=== PATIENT | female | born 1940 | race Caucasian/White ===

== ENCOUNTER → 2019-05-26 | Outpatient (CLI) | payer MEDICARE, OTHER ==
[~2019-05-26] MED LIST: ASPIR 8181 MG PO; AUGMENTIN 875-1 EACH PO; BAYER ADVANCED500 MG PO; FENOFIBRATE145 MG PO; ISORDIL TITRADOS5 MG PO; ISOSORBIDE MONO30 MG PO; LOSARTAN POTASS25 MG PO; ONDANSETRON HCL INJ 2MG/ML 2ML 2 MG/ML VIAL ONE; PLAVIX75 MG PO; RANEXA500 MG PO; REGADENOSON 0.4 MG/5 ML SYR IV ONE; SIMVASTATIN20 MG PO; VERAPAMIL ER120 MG PO
== END ==
LOC: NM 07:30
PROVIDERS: ATTEND Internal Medicine Cardiovascular Disease
DX: R07.9 Chest pain, unspecified (principal); I25.10 Atherosclerotic heart disease of native coronary artery without angina pectoris; Z98.61 Coronary angioplasty status
CPT/HCPCS: 78452; 93017; A9502; J2405; J2785

== ENCOUNTER 2019-12-16 10:16 | Inpatient (IN) | payer MEDICARE, OTHER ==
[~2019-12-16] VITALS: Ht 157.5 cm; Wt 58.1 kg
[~2019-12-16 10:16] MED LIST changes: -ONDANSETRON HCL INJ 2MG/ML 2ML 2 MG/ML VIAL ONE; -REGADENOSON 0.4 MG/5 ML SYR IV ONE
[2019-12-16] MEDS ORDERED: SODIUM CHLORIDE 0.9% 1000ML 1,000 ML IV STA (10:50)
[2019-12-16] MEDS ORDERED: ONDANSETRON HCL INJ 2MG/ML 2ML 2 MG/ML VIAL IV STA (10:50)
[2019-12-16] MEDS ORDERED: PANTOPRAZOLE 40 MG 10ML VIAL IV STA (10:50)
[2019-12-16] MEDS ORDERED: MORPHINE SULFATE 2 MG/ML SYR 1ML IV STA (10:50)
--- NOTE | 2019-12-16 10:53 | NUR ---
PATIENT FEBRILE 100.4 IN TRIAGE, PATIENT BUNDLED IN LARGE PURPLE COAT. PATIENT ADVISED TO REMOVE COAT SO THAT WE DO NOT INCREASE HER TEMPERATURE. PATIENT STATES "I'M COLD, I DON'T CARE IF IT MAKES MY TEMP GO HIGHER"
[2019-12-16] MEDS ORDERED: DIATRIZOATE MEGL/DIATRIZOA SOD 30 ML BTL PO ONE (11:09)
[2019-12-16 11:44] LABS: BASOPHILS # (AUTO) 0.1 (0.0-0.1); BASOPHILS % 0.3 % (0.0-1.0); HEMOGLOBIN 10.9 g/dL (12.0-16.0); LYMPHOCYTES # (AUTO) 0.9 (1.0-3.2); LYMPHOCYTES % 3.3 % (18.0-39.1); MEAN CORPUSCULAR HEMOGLOBIN 25.8 pg (28-32); MEAN CORPUSCULAR HGB CONC 31.1 g/dL (31-35); MEAN CORPUSCULAR VOLUME 82.9 fL (81-99); MONOCYTES # (AUTO) 1.1 (0.2-0.8); MONOCYTES % 4.1 % (4.4-11.3); NEUTROPHILS # (AUTO) 23.9 (2.1-6.9); NEUTROPHILS % 90.9 % (38.7-80.0); PLATELET COUNT 415 x10e3/uL (140-360); RED BLOOD COUNT 4.22 x10e6/uL (3.6-5.1)
[2019-12-16 11:56] LABS: INR 1.22; PROTHROMBIN TIME 16.2 seconds (11.9-14.5)
[2019-12-16 11:57] LABS: PARTIAL THROMBOPLASTIN TIME 39.8 seconds (23.8-35.5)
--- NOTE | 2019-12-16 12:02 | Diagnostic Imaging Report ---
EXAM: CHEST SINGLE (PORTABLE) DATE: 12/16/2019 11:30 AM INDICATION: Fever, abdominal pain COMPARISON: None FINDINGS: There are posterior changes from prior median sternotomy and suspected CABG. The trachea is midline. The lungs are symmetrically expanded without evidence for large focal consolidation, pneumothorax, or significant pleural effusion. The cardiomediastinal silhouette and pulmonary vasculature are within normal limits. Atherosclerotic calcification are noted within the thoracic aorta. No acute osseous abnormality is identified. IMPRESSION: No acute cardiopulmonary process identified. Signed by: Dr. Bryon Galindo MD on 12/16/2019 11:58 AM
[2019-12-16 12:07] LABS: ALBUMIN 2.8 g/dL (3.5-5.0); ALBUMIN/GLOBULIN RATIO 0.6 (0.8-2.0); ANION GAP 16.1 mmol/L (8-16); CALCIUM 9.9 mg/dL (8.4-10.2); CREATININE, SERUM 1.01 mg/dL (0.57-1.11); MAGNESIUM 1.2 MG/DL (1.3-2.1); POTASSIUM 4.1 mmol/L (3.5-5.1)
[2019-12-16] MEDS ORDERED: HYDROMORPHONE 1MG/1ML INJ IV STA (12:11)
[2019-12-16 12:13] LABS: CREATINE KINASE MB 0.5 ng/mL (0-5.0)
[2019-12-16 12:48] LABS: LYMPHOCYTES % (MANUAL) 4 % (19-48); MONOCYTES % (MANUAL) 4 % (3.4-9.0); NEUTROPHILS % (MANUAL) 92 % (40-74)
[2019-12-16 12:49] LABS: PLATELET ESTIMATE SLIGHTLY INCREASED; PLATELET MORPHOLOGY COMMENT FEW EDTA CLUMPING; RBC MORPHOLOGY COMMENT NORMAL
[2019-12-16] MEDS ORDERED: SODIUM CHLORIDE 0.9% 50ML 50 ML ONE (13:08)
[2019-12-16] MEDS ORDERED: IOPAMIDOL 370 MG/ML 200 ML INFUS..BTL INJ ONE (13:08)
[2019-12-16 14:07] LABS: BILIRUBIN,URINE NEGATIVE (NEGATIVE); CLARITY,URINE CLEAR (CLEAR); COLOR,URINE YELLOW (YELLOW); KETONES,URINE NEGATIVE (NEGATIVE); LEUKOCYTE ESTERASE ,URINE TRACE (NEGATIVE); NITRITE,URINE NEGATIVE (NEGATIVE); PROTEIN,URINE DIPSTICK NEGATIVE (NEGATIVE); URINE UROBILINOGEN 0.2 mg/dL (0.2 - 1)
[2019-12-16 14:17] LABS: BACTERIA,URINE MODERATE /HPF; EPITHELIAL CELLS,URINE RARE /LPF; RBC,URINE 0-5 /HPF (0-5); WBC,URINE (MAN) 0-5 /HPF (0-5)
--- NOTE | 2019-12-16 14:17 | Diagnostic Imaging Report ---
CT of the abdomen and pelvis, with contrast. History: Right lower quadrant pain, fever. History of appendectomy.. Comparison: None available. Technique: Multidetector CT scanning of the abdomen and pelvis was performed from the level of the lung bases to the inferior pubic rami after intravenous administration of contrast. Coronal and sagittal multiplanar reformations were obtained. RADIATION DOSE: Total DLP: 289.11 mGy*cm Dose modulation, iterative reconstruction, and/or weight based adjustment of the mA/kV was utilized to reduce the radiation dose to as low as reasonably achievable. FINDINGS: The lung bases are remarkable for mild bibasilar atelectasis. Partially visualized median sternotomy wires noted. The liver is normal in size and attenuation. The gallbladder is surgically absent. There is mild dilatation of the central bile ducts and dilatation of the common bile duct measuring up to 1.3 cm. No radiopaque biliary stone is identified. The spleen is mildly enlarged measuring up to 12.1 cm but otherwise unremarkable. The stomach, pancreas, and bilateral adrenal glands are unremarkable. The kidneys are normal in size and location and enhance symmetrically. There is a 4.0 x 4.6 cm simple cyst identified arising off the inferior pole the left kidney. There is no evidence for hydronephrosis. No ureteral stone or dilatation is appreciated. The urinary bladder demonstrates no significant abnormalities. The uterus is surgically absent. No abnormal adnexal masses are identified. The abdominal aorta is normal course and caliber with after scarring calcifications course and branch vessels. The IVC is unremarkable. In this patient with history of appendectomy, a 2.9 x 4.1 cm air-fluid collection is identified within the retroperitoneal right lower quadrant abutting the lateral aspect of the psoas musculature. Additional smaller foci of partially organized air and fluid noted within the right lower quadrant adjacent to the cecum which may: Need obtained with the dominant collection. There is mild wall thickening of the cecum, likely reactive. The remaining visualized loops of small and large bowel demonstrate no evidence of obstruction or inflammation, noting limited evaluation due to lack of enteric contrast material. There is no ascites or intraperitoneal free air. No abnormally enlarged lymph nodes are identified within the abdomen or pelvis. The osseous structures demonstrate degenerative changes without evidence for acute fracture or destructive process. IMPRESSION: 2.9 x 4.1 cm air-fluid collection identified within the right lower quadrant concerning for abscess. Additional smaller foci of partially organized air and fluid noted within the right lower quadrant which may communicate with the larger fluid collection. The dominant collection would be amenable for percutaneous drainage if clinically desired. Dilatation of the central intrahepatic bile ducts and common bile ducts which likely reflects reservoir phenomenon status post cholecystectomy. No radiopaque biliary stone appreciated. Signed by: Dr. Bryon Galindo MD on 12/16/2019 2:14 PM
[2019-12-16] MEDS ORDERED: MEROPENEM 1GRAM 1 GM in SODIUM CHLORIDE 0.9% 100 ML 100 ML IV SCH (14:45)
[2019-12-16] MEDS: MEROPENEM 1GM 100 ML IV SCH ×2 (14:55→23:29)
--- NOTE | 2019-12-16 15:50 | Emergency Department Note ---
History of Present Illnes History of Present Illness Chief Complaint: General Medicine Complaints History of Present Illness This is a 79 year old female PATIENT IN FROM HOME WITH COMPLAINTS OF FEVER AND RLQ ABDOMINAL PAIN X 1 WEEK; PATIENT STATES SHE HAS RLQ ABDOMINAL PAIN AND VOMITING TODAY RATES 8/10. PATIENT FEBRILE 100. IN TRIAGE, FAMILY STATES 103 AT HOME. PATIENT STATES SHE WAS SENT FROM DR ROGER OFFICE FOR DEHYDRATION. Historian: Patient, Family Member Arrival Mode: Car Toaster Operator Required: No Onset (how long ago): week(s) (1-2 WEEKS) Location: RLQ ABD Quality: PAIN Radiation: Reports non-radiation Severity: severe Onset quality: gradual Timing of current episode: constant Progression: worsening Chronicity: new Context: Denies recent illness Relieving factors: none Exacerbating factors: none Associated symptoms: Reports fever/chills, Reports nausea/vomiting Treatments prior to arrival: none Past Medical/Family History Physician Review I have reviewed the patient's past medical and family history. Any updates have been documented here. Past Medical History Recent Fever: Yes Clinical Suspicion of Infectio: Yes New/Unexplained Change in Ment: No Past Medical History: Hypertension, [place], Chronic Back Pain Other Medical History: TICK BITE CHRONIC BACK PAIN PANCREATITIS Past Surgical History: Appendectomy, Hysterectomy, CABG, Knee Replacement Other Surgery: RIGHT ARM SURGERY BILATERAL KNEE REPLACEMENT Social History Smoking Cessation: Never Smoker Counseling Performed: No Alcohol Use: None Any Illegal Drug Use: No TB Exposure/Symptoms: No Physically hurt or threatened: No Family History Family history of heart diseas: No Other Last Tetanus: UNK Any Pre-Existing Lines (PICC,: No Is patient up to date on immun: Yes Last Flu: 2019 Last Pneumovax: 2019 Review of Systems Review of Systems Constitutional: Reports as per HPI, Reports fever Gastrointestinal: Reports as per HPI, Reports abdominal pain, Reports nausea, Reports vomiting Physical Exam Related Data Allergies: Coded Allergies: codeine (Verified Allergy, Mild, "FEELS LIKE ANTS ARE CRAWLING", 03/27/17) oxycodone (Verified Allergy, Mild, "FEELS LIKE ANTS ARE CRAWLING", 03/27/17) clarithromycin (Verified Allergy, Unknown, 03/27/17) levofloxacin (Verified Allergy, Unknown, 03/27/17) meperidine (Verified Allergy, Unknown, 03/27/17) Uncoded Allergies: TAPE (Allergy, Unknown, 03/27/17) Triage Vital Signs Vital Signs Date Time Temp Pulse Resp B/P (MAP) Pulse Ox O2 Delivery O2 Flow Rate FiO2 12/16/19 10:35 100.4 96 18 126/56 99 Vital signs reviewed: Yes Physical Exam CONSTITUTIONAL Constitutional: Present well-developed, Present well-nourished HENT HENT: Present normocephalic, Present atraumatic, Present oropharynx clear/moist, Present nose normal HENT L/R: Present left ext ear normal, Present right ext ear normal EYES Eyes: Reports PERRL, Reports conjunctivae normal NECK Neck: Present ROM normal PULMONARY Pulmonary: Present effort normal, Present breath sounds normal CARDIOVASCULAR Cardiovascular: Present regular rhythm, Present heart sounds normal, Present capillary refill normal, Present normal rate GASTROINTESTINAL Abdominal: Present soft, Present tender (MOD TENDERNESS RLQ); Absent guarding, Absent rebound GENITOURINARY Genitourinary: Present exam deferred SKIN Skin: Present warm, Present dry MUSCULOSKELETAL Musculoskeletal: Present ROM normal NEUROLOGICAL Neurological: Present alert, Present oriented x 3, Present no gross motor or sensory deficits PSYCHOLOGICAL Psychological: Present mood/affect normal, Present judgement normal Results Laboratory Result Diagram: 12/16/19 1100 12/16/19 1100 Laboratory Laboratory Tests Test 12/16/19 13:45 12/16/19 11:40 12/16/19 11:00 Urine Color Yellow (YELLOW) Urine Clarity Clear (CLEAR) Urine pH 6 (5 - 7) Urine Specific [place] <=1.005 (1.010-1.025) Urine Protein Negative (NEGATIVE) Urine Glucose (UA) Negative (NEGATIVE) Urine Ketones Negative (NEGATIVE) Urine Blood Trace (NEGATIVE) Urine Nitrite Negative (NEGATIVE) Urine Bilirubin Negative (NEGATIVE) Urine Urobilinogen 0.2 mg/dL (0.2 - 1) Urine Leukocyte Esterase Trace (NEGATIVE) Urine RBC 0-5 /HPF (0-5) Urine WBC 0-5 /HPF (0-5) Urine Epithelial Cells Rare /LPF (NONE) Urine Bacteria Moderate /HPF (NONE) White Blood Count 26.34 x10e3/uL (4.8-10.8) Red Blood Count 4.22 x10e6/uL (3.6-5.1) Hemoglobin 10.9 g/dL (12.0-16.0) Hematocrit 35.0 % (34.2-44.1) Mean Corpuscular Volume 82.9 fL (81-99) Mean Corpuscular Hemoglobin 25.8 pg (28-32) Mean Corpuscular Hemoglobin Concent 31.1 g/dL (31-35) Red Cell Distribution Width 13.0 % (11.7-14.4) Platelet Count 415 x10e3/uL (140-360) Neutrophils (%) (Auto) 90.9 % (38.7-80.0) Lymphocytes (%) (Auto) 3.3 % (18.0-39.1) Monocytes (%) (Auto) 4.1 % (4.4-11.3) Eosinophils (%) (Auto) 0.0 % (0.0-6.0) Basophils (%) (Auto) 0.3 % (0.0-1.0) Neutrophils # (Auto) 23.9 (2.1-6.9) Lymphocytes # (Auto) 0.9 (1.0-3.2) Monocytes # (Auto) 1.1 (0.2-0.8) Eosinophils # (Auto) 0.0 (0.0-0.4) Basophils # (Auto) 0.1 (0.0-0.1) Absolute Immature Granulocyte (auto 0.37 x10e3/uL (0-0.1) Differential Total Cells Counted 100 Neutrophils % (Manual) 92 % (40-74) Lymphocytes % (Manual) 4 % (19-48) Monocytes % (Manual) 4 % (3.4-9.0) Platelet Estimate Slightly increased Platelet Morphology Comment Few edta clumping Red Cell Morphology Comment Normal Prothrombin Time 16.2 seconds (11.9-14.5) Prothromb Time International Ratio 1.22 Activated Partial Thromboplast Time 39.8 seconds (23.8-35.5) Sodium Level 133 mmol/L (136-145) Potassium Level 4.1 mmol/L (3.5-5.1) Chloride Level 95 mmol/L (98-107) Carbon Dioxide Level 26 mmol/L (22-29) Anion Gap 16.1 mmol/L (8-16) Blood Urea Nitrogen 16 mg/dL (7-26) Creatinine 1.01 mg/dL (0.57-1.11) Estimat Glomerular Filtration Rate 53 ML/MIN (60-) BUN/Creatinine Ratio 16 (6-25) Glucose Level 152 mg/dL (74-118) Calcium Level 9.9 mg/dL (8.4-10.2) Magnesium Level 1.2 MG/DL (1.3-2.1) Total Bilirubin 0.5 mg/dL (0.2-1.2) Aspartate Amino Transf (AST/SGOT) 19 IU/L (5-34) Alanine Aminotransferase (ALT/SGPT) 18 IU/L (0-55) Alkaline Phosphatase 82 IU/L (40-150) Creatine Kinase 18 IU/L (29-168) Creatine Kinase MB 0.50 ng/mL (0-5.0) Troponin I 0.002 ng/mL (0-0.300) Total Protein 7.8 g/dL (6.5-8.1) Albumin 2.8 g/dL (3.5-5.0) Globulin 5.0 g/dL (2.3-3.5) Albumin/Globulin Ratio 0.6 (0.8-2.0) Lab results reviewed: Yes Imaging Imaging results reviewed: Yes Impressions CXR IMPRESSION: No acute cardiopulmonary process identified. Signed by: Dr. Bryon Galindo MD on 12/16/2019 11:58 AM Procedure: [id number] CT/CT ABDOMEN/PELVIS W Exam Date: 12/16/19 Exam Time: 1300 REPORT STATUS: Signed CT of the abdomen and pelvis, with contrast. History: Right lower quadrant pain, fever. History of appendectomy.. Comparison: None available. Technique: Multidetector CT scanning of the abdomen and pelvis was performed from the level of the lung bases to the inferior pubic rami after intravenous administration of contrast. Coronal and sagittal multiplanar reformations were obtained. RADIATION DOSE: Total DLP: 289.11 mGy*cm Dose modulation, iterative reconstruction, and/or weight based adjustment of the mA/kV was utilized to reduce the radiation dose to as low as reasonably achievable. FINDINGS: The lung bases are remarkable for mild bibasilar atelectasis. Partially visualized median sternotomy wires noted. The liver is normal in size and attenuation. The gallbladder is surgically absent. There is mild dilatation of the central bile ducts and dilatation of the common bile duct measuring up to 1.3 cm. No radiopaque biliary stone is identified. The spleen is mildly enlarged measuring up to 12.1 cm but otherwise unremarkable. The stomach, pancreas, and bilateral adrenal glands are unremarkable. The kidneys are normal in size and location and enhance symmetrically. There is a 4.0 x 4.6 cm simple cyst identified arising off the inferior pole the left kidney. There is no evidence for hydronephrosis. No ureteral stone or dilatation is appreciated. The urinary bladder demonstrates no significant abnormalities. The uterus is surgically absent. No abnormal adnexal masses are identified. The abdominal aorta is normal course and caliber with after scarring calcifications course and branch vessels. The IVC is unremarkable. In this patient with history of appendectomy, a 2.9 x 4.1 cm air-fluid collection is identified within the retroperitoneal right lower quadrant abutting the lateral aspect of the psoas musculature. Additional smaller foci of partially organized air and fluid noted within the right lower quadrant adjacent to the cecum which may: Need obtained with the dominant collection. There is mild wall thickening of the cecum, likely reactive. The remaining visualized loops of small and large bowel demonstrate no evidence of obstruction or inflammation, noting limited evaluation due to lack of enteric contrast material. There is no ascites or intraperitoneal free air. No abnormally enlarged lymph nodes are identified within the abdomen or pelvis. The osseous structures demonstrate degenerative changes without evidence for acute fracture or destructive process. IMPRESSION: 2.9 x 4.1 cm air-fluid collection identified within the right lower quadrant concerning for abscess. Additional smaller foci of partially organized air and fluid noted within the right lower quadrant which may communicate with the larger fluid collection. The dominant collection would be amenable for percutaneous drainage if clinically desired. Dilatation of the central intrahepatic bile ducts and common bile ducts which likely reflects reservoir phenomenon status post cholecystectomy. No radiopaque biliary stone appreciated. Signed by: Dr. Bryon Galindo MD on 12/16/2019 2:14 PM Procedures 12 Lead ECG Interpretation ECG Interpretation : ECG: ECG 1 Toaster Operator: Interpreted by ED physician Date: Dec 16, 2019 Time: 11:28 Rhythm: sinus rhythm Rate: normal (88) QRS axis: normal T wave inversion: I, II, aVL, aVF, V2, V3, V4, V5, V6 T waves flattening: III Clinical Impression: abnormal ECG Assessment & Plan Medical Decision Making MDM CHECK CBC, CHEM, CARDIACS, ECG, UA/CX, BLOOD CX'S, CT ABD/PELVIS - R/O LEUKOCYTOSIS, RENAL INSUFF, UTI, COLITIS, INTRA-ABD ABSCESS, COLITIS, STEMI/NSTEMI Reassessment Reassessment SPOKE WITH DR GEORGE, DR FLORES, AND CONSULT FOR IR Assessment & Plan Final Impression: (1) Retroperitoneal abscess Depart Disposition: ADMITTED Last Vital Signs Date Time Temp Pulse Resp B/P (MAP) Pulse Ox O2 Delivery O2 Flow Rate FiO2 12/16/19 15:19 99.0 100 18 109/48 97 Home Meds Active Scripts Amoxicillin/Potassium Clav (AUGMENTIN 875-125 TABLET) 1 Each Tablet, 1 EACH PO BID for 10 Days, #20 Prov:YSABEL OATES MD 03/31/17 Isosorbide Dinitrate (ISORDIL TITRADOSE) 5 Mg Tablet, 30 MG PO BID for 30 Days Prov:NOEMI QUINTERO MD 08/05/14 Reported Medications Isosorbide Mononitrate (ISOSORBIDE MONONITRATE ER) 30 Mg Tab.er.24h, 60 MG PO BID, #30 TAB 03/28/17 Losartan Potassium (LOSARTAN POTASSIUM) 25 Mg Tablet, 25 MG PO DAILY 03/28/17 Aspirin (ASPIR 81) 81 Mg Tablet.dr, 81 MG PO DAILY 03/28/17 Simvastatin (SIMVASTATIN) 20 Mg Tablet, 20 MG PO 2100, EA 03/28/17 Ranolazine (RANEXA) 500 Mg Tabsr, 500 MG PO BID, #60 TAB 08/04/14 Clopidogrel Bisulfate* (PLAVIX) 75 Mg Tablet, 75 MG PO DAILY, #30 TAB 08/04/14 Verapamil Hcl (VERAPAMIL ER) 120 Mg Cap24h.pel, 100 MG PO DAILY 08/04/14 Fenofibrate Nanocrystallized (FENOFIBRATE) 145 Mg Tablet, 134 MG PO DAILY 08/04/14 Medications in the ED Pantoprazole Sodium 40 mg ONCE STAT IV Last administered on 12/16/19at 11:41; Admin Dose 40 MG; Start 12/16/19 at 10:50; Stop 12/16/19 at 11:20; Status DC Morphine Sulfate 2 mg ONCE STAT IV ; Start 12/16/19 at 10:50; Stop 12/16/19 at 11:35; Status DC Ondansetron HCl 4 mg ONCE STAT IV Last administered on 12/16/19at 11:41; Admin Dose 4 MG; Start 12/16/19 at 10:50; Stop 12/16/19 at 11:20; Status DC Sodium Chloride 1,000 ml @ 0 mls/hr Q0M STAT IV Last administered on 12/16/19at 11:25; Admin Dose 999 MLS/HR; Start 12/16/19 at 10:50; Stop 12/16/19 at 10:59; Status DC Diatrizoate Meglum/ Diatrizoate Sod 30 ml STK-MED ONCE PO ; Start 12/16/19 at 11:09; Stop 12/16/19 at 11:03; Status DC Hydromorphone HCl 0.5 mg NOW STAT IV Last administered on 12/16/19at 12:37; Admin Dose 0.5 MG; Start 12/16/19 at 12:11; Stop 12/16/19 at 12:22; Status DC Sodium Chloride 50 ml @ ud STK-MED ONCE .ROUTE ; Start 12/16/19 at 13:08; Stop 12/16/19 at 13:02; Status DC Iopamidol 74,000 mg STK-MED ONCE INJ ; Start 12/16/19 at 13:08; Stop 12/16/19 at 13:03; Status DC Meropenem 1 gm/ Sodium Chloride 100 ml @ 100 mls/hr Q8H IV ; Start 12/16/19 at 14:45; Stop 12/16/19 at 14:43; Status DC Meropenem 100 ml @ 100 mls/hr Q8H IV Last administered on 12/16/19at 14:55; Adm in Dose 100 MLS/HR; Start 12/16/19 at 14:42; Stop 12/23/19 at 14:41 SANGITA QUESADA MD Dec 16, 2019 15:50
[2019-12-16] MEDS: SODIUM CHLORIDE 0.9% 1000ML 1,000 ML IV SCH (16:28)
[2019-12-16] MEDS: HYDROMORPHONE 1MG/1ML INJ IV PRN (17:02)
--- NOTE | 2019-12-16 17:14 | NUR ---
NOTIFIED AND OF CONSULT
--- NOTE | 2019-12-16 18:05 | NUR ---
Received patient from ER via wheelchair. AAOX4 to time, person, place, situation. Respirations even and unlabored. Tele #[phone]. Denies pain. Oriented patient to room. Instructed to use call light for assistance. Voiced understanding. Will continue to monitor.
[2019-12-16] MEDS ORDERED: PROTONIX20 MG PO (18:29)
[2019-12-16] MEDS ORDERED: SERTRALINE HCL50 MG PO (18:29)
[2019-12-16 18:30] VITALS: BP 120/59
--- NOTE | 2019-12-16 19:04 | NUR ---
Report given to oncoming nurse of patient's status. Resting in bed. No s/s of acute distress noted. Side rails upx2, call light within reach. Initial physical assessment to be completed by oncoming nurse.
[2019-12-16 19:20] VITALS: BP 120/59
[2019-12-16 19:20] LABS: CREATINE KINASE 11 IU/L (29-168)
--- NOTE | 2019-12-16 19:20 | NUR ---
Patient received lying in bed. AAO x 3. Patient had no complaints of pain except nausea. Respirations even and non-labored. Initial physical assessment performed. Patient oriented to room, call light and plan of care. Safety measures in place. Patient instructed to call for assistance when needed. Call light within reach.
[2019-12-16 20:19] VITALS: BP 100/76
[2019-12-16] MEDS ORDERED: TEMAZEPAM15 MG PO (20:28)
[2019-12-16] MEDS ORDERED: ONDANSETRON HCL INJ 2MG/ML 2ML 2 MG/ML VIAL IV PRN (20:30)
--- NOTE | 2019-12-16 20:31 | NUR ---
Patient complained of nausea and also wanted the medication she takes at home for sleep (Temazepam 15 mg). New order received for Zofran 4 mg Q6H IV PRN and Temazepam 15 mg PRN @ HS.
--- NOTE | 2019-12-16 21:43 | Consultation ---
DATE OF CONSULTATION: REASON FOR CONSULTATION: Abdominal pain. HISTORY OF PRESENT ILLNESS: This patient, who is an 79-year-old, comes in with abdominal pain on the right lower quadrant. The patient lives at home. She has fever and chills for 4 days or so. The patient comes into the hospital, where she was admitted. PAST MEDICAL HISTORY: Osteoarthritis and coronary artery disease. PAST SURGICAL HISTORY: Knee replacement, CABG, hysterectomy, and appendectomy. SOCIAL HISTORY: As above. No smoking, drug abuse, or alcohol abuse. FAMILY HISTORY: Otherwise unremarkable. The patient, who was admitted. Blood cultures obtained in consultation. She is currently on meropenem. Her white count 26.4 and hemoglobin of 10. Her sodium 133, potassium 4.1, and creatinine 1.10. PHYSICAL EXAMINATION: GENERAL: She is currently alert and oriented. Does not seem to be in acute distress. VITAL SIGNS: Stable, afebrile. HEENT: She is not icteric. NECK: Supple. CHEST: Clear. HEART: S1 and S2. No S3, S4, or murmur. ABDOMEN: Soft. The CAT scan showed there was a 3 x 4.1 cm right lower quadrant, could be abscess. IMPRESSION: Intra-abdominal abscess, history of appendectomy. Agree with meropenem. Recommend CT-guided aspiration. Recheck CBC. Recheck chem panel. We will follow. MD AMMON Pace/JENNIFER /[id number]
[2019-12-16] MEDS ORDERED: ACETAMINOPHEN 325 MG TAB PO PRN (23:45)
--- NOTE | 2019-12-16 23:45 | NUR ---
Patient informed of upcoming medical procedure---CT-guided aspiration of abdominal abscess by IR and NPO status at midnight. Patient verbalized understanding and voluntarily signed "Disclosure and Consent" form.
--- NOTE | 2019-12-16 23:50 | NUR ---
Patient has low-grade fever of 100.2 F, with BP of 93/63 and HR (84). Patient had complaints of lower back pain > 10. Darius Aguayo (POWER GENERATION ENGINEER) notified. New orders received for Tramadol 50 mg PO Q4H PRN; [place] 5mg Q6H PO PRN and Tylenol 650 mg Q6H PRN for temperature greater than 101 F.
[2019-12-17] VITALS (7 sets, daily range): BP systolic 93–121; BP diastolic 36–63
[2019-12-17] MEDS: HYDROCODONE/APAP 5MG-325MG TAB PO PRN (00:30)
[2019-12-17] MEDS: SODIUM CHLORIDE 0.9% 1000ML 1,000 ML IV SCH ×2 (04:03→22:00)
[2019-12-17] MEDS: TRAMADOL HCL 50 MG TAB PO PRN (04:19)
[2019-12-17 05:38] LABS: BASOPHILS % 0.2 % (0.0-1.0); EOSINOPHILS # (AUTO) 0.1 (0.0-0.4); EOSINOPHILS % 0.4 % (0.0-6.0); HEMATOCRIT 27.6 % (34.2-44.1); HEMOGLOBIN 8.6 g/dL (12.0-16.0); LYMPHOCYTES # (AUTO) 1.8 (1.0-3.2); LYMPHOCYTES % 10.8 % (18.0-39.1); MEAN CORPUSCULAR HEMOGLOBIN 25.8 pg (28-32); MEAN CORPUSCULAR HGB CONC 31.2 g/dL (31-35); MEAN CORPUSCULAR VOLUME 82.9 fL (81-99); MONOCYTES # (AUTO) 1.1 (0.2-0.8); MONOCYTES % 6.4 % (4.4-11.3); NEUTROPHILS # (AUTO) 13.7 (2.1-6.9); NEUTROPHILS % 81.1 % (38.7-80.0); PLATELET COUNT 345 x10e3/uL (140-360); RED BLOOD COUNT 3.33 x10e6/uL (3.6-5.1); RED CELL DISTRIBUTION WIDTH 13.1 % (11.7-14.4)
[2019-12-17 06:00] LABS: ALANINE AMINOTRANSFERASE 13 IU/L (0-55); ALBUMIN/GLOBULIN RATIO 0.5 (0.8-2.0); ALKALINE PHOSPHATASE 60 IU/L (40-150); BLOOD UREA NITROGEN 11 mg/dL (7-26); BUN/CREATININE RATIO 14 (6-25); CALCIUM 8.3 mg/dL (8.4-10.2); CARBON DIOXIDE 27 mmol/L (22-29); CHLORIDE 103 mmol/L (98-107); CREATININE, SERUM 0.78 mg/dL (0.57-1.11); EST GLOMERULAR FILTRATION RATE > 60 ML/MIN (60-); GLUCOSE 95 mg/dL (74-118); SODIUM 136 mmol/L (136-145)
[2019-12-17] MEDS: MEROPENEM 1GM 100 ML IV SCH ×2 (06:47→13:22)
--- NOTE | 2019-12-17 07:00 | NUR ---
Received bedside shift from off going night nurse. Patient in stable condition, no s/s of distress noted. Telemetry applied. Bed in lowest position and locked. Call light within reach.
--- NOTE | 2019-12-17 07:00 | NUR ---
Walking rounds done. Patient resting comfortably. Shift report given to oncoming nurse.
[2019-12-17 07:16] LABS: CREATINE KINASE MB 0.6 ng/mL (0-5.0)
[2019-12-17] MEDS ORDERED: ONDANSETRON HCL INJ 2MG/ML 2ML 2 MG/ML VIAL IV PRN (10:15)
[2019-12-17] MEDS ORDERED: HYDRALAZINE HCL 20 MG/ML VIAL IV PRN (10:15)
--- NOTE | 2019-12-17 10:56 | Consultation ---
DATE OF CONSULTATION: 12/17/2019 CHIEF COMPLAINT: Abdominal pain. HISTORY OF PRESENT ILLNESS: The patient is an 79-year-old female with 10-day history of progressive abdominal pain in the right lower quadrant with some subjective fevers. No vomiting, no diarrhea, even though her appetite has decreased. PAST MEDICAL HISTORY: Significant for coronary artery disease and osteoarthritis. PAST SURGICAL HISTORY: Positive for coronary artery bypass grafting, hysterectomy, appendectomy at 10 years of age, and knee replacement. SOCIAL HABITS: She does not smoke or drink. REVIEW OF SYSTEMS: No chest pain, shortness of breath, cough, or dizziness. ALLERGIES: TO CODEINE, LEVAQUIN, DEMEROL, OXYCODONE, AND CLARITHROMYCIN. PHYSICAL EXAMINATION: VITAL SIGNS: Show T-max of 100.2, blood pressure 100/40, pulse of 83. GENERAL: She is awake, alert, in mild to moderate discomfort. HEENT: Sclerae nonicteric. NECK: Supple. LUNGS: Clear. HEART: Regular rate and rhythm. ABDOMEN: Soft with some guarding tenderness in the right lower quadrant with mild rebound. EXTREMITIES: No cyanosis or edema. LABORATORY DATA: Her white cell count is 16.9 and hemoglobin 8.6. Creatinine of 0.8. Liver function tests within normal limits. CT of the abdomen show a 3 x 4 cm right lower quadrant abscess collection. Otherwise, no intestinal inflammation of free air. ASSESSMENT: Intra-abdominal abscess, amenable to percutaneous drainage. PLAN: Percutaneous drainage of abdominal abscess by Interventional Radiology. We will follow the patient with you. Mathieu Greco MD DNMariaelena/MODMariaelena /[id number]
[2019-12-17] MEDS: HYDROMORPHONE 1MG/1ML INJ IV PRN ×2 (11:33→17:44)
--- NOTE | 2019-12-17 11:42 | Progress Note ---
DATE: SUBJECTIVE: The patient is seen and evaluated. Available labs and notes reviewed. Discussed with Dr. Franklin. Please refer to chart for more information. REVIEW OF SYSTEMS: Pain seems to be controlled at this point. No nausea or vomiting. Had a low-grade temperature of 100.2 this morning. No chest pain or shortness of breath. No headache. No rash. No dysuria. PHYSICAL EXAMINATION: VITAL SIGNS: Temperature 100.2 max, pulse 83, respirations 20, and blood pressure 100/36. GENERAL: Alert and oriented. No acute distress. CV: S1 and S2. CHEST: Equal expansion. Clear to auscultation. No acute distress. ABDOMEN: Soft and nontender with some discomfort. HEENT: Moist. No pallor. No JVD. EXTREMITIES: Weak. No obvious cyanosis or clubbing. MEDICATIONS: Medication list reviewed and from ID point of view, the patient is on meropenem. LABORATORY STUDIES: White count of 16.91, improved from 26.34, hemoglobin 8.6, and platelet 345. Sodium 136, potassium 4, and creatinine 0.78. Serology; coronavirus PCR not detected on 12/16/2019. MICROBIOLOGY: Blood culture pending. Urine culture negative 24 hours. RADIOLOGY STUDIES: No new radiology studies available. ASSESSMENT AND PLAN: A 3 x 4.1 cm right lower quadrant abdominal abscess possibly, the patient with a history of appendectomy. Plan to place percutaneous drain by Interventional Radiology hopefully today soon. Leukocytosis improved. Monitor temperature. Continue with antibiotics. Pain seems to be controlled. Continue to monitor the patient clinically and follow up with the labs. Dictated by Rm Wilkins PA-C (Al) Chris Franklin MD /MODL /[id number]
[2019-12-17 13:13] LABS: CREATINE KINASE MB 0.6 ng/mL (0-5.0)
[2019-12-17] MEDS ORDERED: MIDAZOLAM HCL 2 MG/2 ML VIAL ONE (14:40)
[2019-12-17] MEDS ORDERED: FENTANYL CITRATE/PF 100MCG/2 ML INJ ONE (14:41)
--- NOTE | 2019-12-17 15:05 | NUR ---
Patient off the @ 1457 went to IR. Patient in stable condition, no s/s of distress noted. No pain voiced. Telemetry applied.
--- NOTE | 2019-12-17 16:25 | Diagnostic Imaging Report ---
PROCEDURE: Drainage catheter placement Procedural Personnel Attending physician(s): William Paredes MD Fellow physician(s): None Resident physician(s): None Advanced practice provider(s): None Pre-procedure diagnosis: Retroperitoneal abscess Post-procedure diagnosis: Same Indication: Leukocytosis with fluid collection Additional clinical history: None Complications: No immediate complications. IMPRESSION: Percutaneous placement of a 10 [place]ian drainage catheter into the right retroperitoneal abscess, yielding 20 mL of blood tinged purulent fluid. Plan: Fluid for culture/gram stain. Drain to gravity drainage. Flush 10cc NS forward and backward via 3-way stopcock twice daily. PROCEDURE SUMMARY: - Retroperitoneal drainage catheter placement under CT guidance - Additional procedure(s): None PROCEDURE DETAILS: Pre-procedure Consent: Informed consent for the procedure including risks, benefits and alternatives was obtained and time-out was performed prior to the procedure. Preparation: The site was prepared and draped using maximal sterile barrier technique including cutaneous antisepsis. Anesthesia/sedation Level of anesthesia/sedation: Moderate sedation (conscious sedation) 1mg Versed, 50mcg Fentanyl Anesthesia/sedation administered by: Independent trained observer under attending supervision with continuous monitoring of the patient?s level of consciousness and physiologic status Total intra-service sedation time (minutes): 30 Drainage catheter placement The patient was positioned prone. Initial imaging was performed. Local anesthesia was administered. The fluid collection was accessed using an access needle followed by wire insertion and serial dilation and a drainage catheter was placed. Position of the drainage catheter within the fluid collection was confirmed. - Initial imaging findings: Right retroperitoneal abscess - Drainage catheter placed: Multipurpose drainage catheter - External catheter securement: Non-absorbable suture - Post-drainage imaging findings: Partial drainage of the fluid collection Contrast Contrast agent: None Contrast volume (mL): [address] dose length product (mGy-cm): 274 Additional Details Additional description of procedure: None Equipment details: None Specimens removed: Aspirated fluid was sent for analysis. Estimated blood loss (mL): Less than 10 Standardized report: [id number] Attestation Signer name: William Paredes MD I attest that I was present for the entire procedure. I reviewed the stored images and agree with the report as written. Signed by: William Paredes MD on 12/17/2019 4:22 PM
--- NOTE | 2019-12-17 16:50 | NUR ---
Patient arrived back on the unit from IR @1634. Dressing applied to the back right flank area the dressing is C/D/I., with drain patent draining to the bag red tinaged drainage. No pain voiced. bed in lowest position and locked Call light within reach.
--- NOTE | 2019-12-17 19:09 | NUR ---
Completed bedside shift report and rounding with on coming night nurse. Patient in stable condition, no s/s of distress noted. Drain applied to the back right flank draining red tinged fluid into the drainage bag, dressing to the right back flank C/D/I. Telemetry applied. Bed in lowest position and locked. Call light within reach.
--- NOTE | 2019-12-17 19:19 | NUR ---
Patient received lying in bed. AAO x 4. Patient had no complaints of pain. Respirations even and non-labored. Dressing to right (backside) flank over "Drainage catheter" clean, dry and intact and draining serosanguineous and brownish drainage. Fall precautions in place. Patient instructed to call for assistance when needed. Call light within reach.
[2019-12-17] MEDS: TEMAZEPAM 15 MG CAP PO PRN (20:36)
[2019-12-18] VITALS (8 sets, daily range): BP systolic 98–138; BP diastolic 44–99
[2019-12-18] MEDS: MEROPENEM 1GM 100 ML IV SCH ×3 (00:27→21:56)
--- NOTE | 2019-12-18 03:25 | NUR ---
Patient's drainage catheter was flushed with 10 cc NS forward and backward via 3-way stopcock. Patient tolerated well.
[2019-12-18] MEDS: HYDROCODONE/APAP 5MG-325MG TAB PO PRN ×2 (03:39→21:25)
[2019-12-18] MEDS: HYDROMORPHONE 1MG/1ML INJ IV PRN ×4 (05:35→15:21)
[2019-12-18 05:47] LABS: BASOPHILS % 0.3 % (0.0-1.0); EOSINOPHILS # (AUTO) 0.2 (0.0-0.4); EOSINOPHILS % 1.7 % (0.0-6.0); HEMATOCRIT 26.7 % (34.2-44.1); HEMOGLOBIN 8.3 g/dL (12.0-16.0); LYMPHOCYTES # (AUTO) 1.5 (1.0-3.2); LYMPHOCYTES % 12.6 % (18.0-39.1); MEAN CORPUSCULAR HEMOGLOBIN 26.2 pg (28-32); MEAN CORPUSCULAR HGB CONC 31.1 g/dL (31-35); MEAN CORPUSCULAR VOLUME 84.2 fL (81-99); MONOCYTES # (AUTO) 0.9 (0.2-0.8); MONOCYTES % 7.5 % (4.4-11.3); NEUTROPHILS # (AUTO) 8.9 (2.1-6.9); PLATELET COUNT 297 x10e3/uL (140-360); RED BLOOD COUNT 3.17 x10e6/uL (3.6-5.1)
[2019-12-18 06:10] LABS: ALANINE AMINOTRANSFERASE 13 IU/L (0-55); ALBUMIN 1.8 g/dL (3.5-5.0); ALBUMIN/GLOBULIN RATIO 0.5 (0.8-2.0); ALKALINE PHOSPHATASE 52 IU/L (40-150); ANION GAP 9.5 mmol/L (8-16); BLOOD UREA NITROGEN 7 mg/dL (7-26); BUN/CREATININE RATIO 11 (6-25); CALCIUM 8.2 mg/dL (8.4-10.2); CARBON DIOXIDE 26 mmol/L (22-29); CHLORIDE 103 mmol/L (98-107); CREATININE, SERUM 0.66 mg/dL (0.57-1.11); EST GLOMERULAR FILTRATION RATE > 60 ML/MIN (60-); GLUCOSE 94 mg/dL (74-118); POTASSIUM 3.5 mmol/L (3.5-5.1); SODIUM 135 mmol/L (136-145)
[2019-12-18 06:13] LABS: MAGNESIUM 1.1 MG/DL (1.3-2.1)
--- NOTE | 2019-12-18 06:27 | NUR ---
Anusha Beatty (PIN PUSHER) notified of critical magnesium level of 1.1. New order received for 2 Gram Mg IV x 1.
[2019-12-18] MEDS ORDERED: MAGNESIUM SULFATE 2GM/50ML 50 ML IV ONE (06:30)
--- NOTE | 2019-12-18 07:00 | NUR ---
Shift report given to oncoming nurse.
--- NOTE | 2019-12-18 07:00 | NUR ---
Received bedside shift from off going night nurse. Patient in stable condition, no s/s of distress noted. Telemetry applied. Dressing to the back right flank C/D/I with drainage bag patent draining strawberry color fluid into bag. Bed in lowest position and locked. Call light within reach.
[2019-12-18] MEDS: PANTOPRAZOLE SOD 40 MG TABEC PO SCH (08:09)
[2019-12-18] MEDS: SERTRALINE HCL 50 MG TAB PO SCH (08:10)
[2019-12-18] MEDS: TRAMADOL HCL 50 MG TAB PO PRN (08:11)
[2019-12-18] MEDS ORDERED: DICYCLOMINE HCL20 MG PO (08:22)
[2019-12-18] MEDS: ASPIRIN 81 MG CHEW TAB PO SCH (10:30)
--- NOTE | 2019-12-18 12:04 | Progress Note ---
DATE: SUBJECTIVE: The patient is seen and evaluated. Available labs and notes reviewed. The patient is seen actually twice. Discussed with the daughter. Questions answered. REVIEW OF SYSTEMS: No nausea, vomiting, fever, chills, chest pain, shortness of breath. She still has sweats at night. PHYSICAL EXAMINATION: VITAL SIGNS: Temperature 97.8 with a maximum temperature of 100.4 last night midnight, pulse is 65, respirations 16, blood pressure 118/49. GENERAL: Alert and oriented, no acute distress. CV: S1, S2. CHEST: Equal expansion. Clear to auscultation. No acute distress. ABDOMEN: Soft. No distention. Percutaneous drain noted, seems to be mixture of pus and blood with a pink looking drainage in percutaneous bag. EXTREMITIES: Weak. No cyanosis or edema. MEDICATIONS: Reviewed. From ID point of view, the patient is on meropenem. LABORATORY STUDIES: White count 11.53 improved, hemoglobin 8.3, platelet 297. Sodium 135, potassium 3.5, creatinine 0.66. Serology: Coronavirus PCR not detected on 12/15. MICROBIOLOGY: Blood culture negative. Urine culture gram-negative rods between 10,000 to 50,000 CFU/mL body fluid. No organisms seen on Gram stain with a culture pending, had few white blood cells. RADIOLOGY: abscess. ASSESSMENT AND PLAN: 1. Right lower quadrant abdominal abscess. 2. History of appendectomy. 3. Status post placement of percutaneous drain. 4. Continue with Merrem. Follow up with microbiology. Fever improving as mentioned above, still with sweats at night. Clinically feels better. Continue to monitor the patient in the clinic. Follow with the labs. Please refer to chart for more information. Dictated by Rm Wilkins PA-C (Al) Chris Franklin MD /MODL /[id number]
--- NOTE | 2019-12-18 19:10 | NUR ---
Completed bedside shift report and rounding with on coming night nurse. Patient in stable condition, no s/s of distress noted. Drain applied to the back right flank draining red tinged fluid into the drainage bag, dressing to the right back flank C/D/I.; Emptied 100 ml of drainage. Telemetry applied. Bed in lowest position and locked. Call light within reach.
--- NOTE | 2019-12-18 19:18 | NUR ---
Patient received sitting up in bed. AAO x 4. Patient had no complaints of pain. Respirations even and non-labored. Safety measures in implemented. Drainage catheter in place. Patient instructed to call for assistance when needed. Call light within reach.
--- NOTE | 2019-12-18 21:50 | NUR ---
IV infiltrated on left arm. Old IV removed with tip intact. New IV inserted in left FA 20G. Patient tolerated well.
[2019-12-18] MEDS: SODIUM CHLORIDE 0.9% 1000ML 1,000 ML IV SCH (21:55)
--- NOTE | 2019-12-18 21:59 | NUR ---
Patient refused to wear non-skid stockings despite being encouraged to do so to prevent falls.
[2019-12-18] MEDS: TEMAZEPAM 15 MG CAP PO PRN (23:53)
[2019-12-19] VITALS (8 sets, daily range): BP systolic 115–139; BP diastolic 49–62
[2019-12-19 06:10] LABS: BASOPHILS % 0.2 % (0.0-1.0); EOSINOPHILS # (AUTO) 0.3 (0.0-0.4); EOSINOPHILS % 6.8 % (0.0-6.0); HEMATOCRIT 26.5 % (34.2-44.1); LYMPHOCYTES # (AUTO) 1.3 (1.0-3.2); LYMPHOCYTES % 26.4 % (18.0-39.1); MEAN CORPUSCULAR HEMOGLOBIN 25.4 pg (28-32); MEAN CORPUSCULAR HGB CONC 30.2 g/dL (31-35); MEAN CORPUSCULAR VOLUME 84.1 fL (81-99); MONOCYTES # (AUTO) 0.4 (0.2-0.8); MONOCYTES % 8.2 % (4.4-11.3); NEUTROPHILS # (AUTO) 2.9 (2.1-6.9); NEUTROPHILS % 56.6 % (38.7-80.0); PLATELET COUNT 336 x10e3/uL (140-360); RED BLOOD COUNT 3.15 x10e6/uL (3.6-5.1); RED CELL DISTRIBUTION WIDTH 13.1 % (11.7-14.4)
[2019-12-19 06:29] LABS: ALANINE AMINOTRANSFERASE 15 IU/L (0-55); ALBUMIN 1.7 g/dL (3.5-5.0); ALBUMIN/GLOBULIN RATIO 0.5 (0.8-2.0); ALKALINE PHOSPHATASE 50 IU/L (40-150); ANION GAP 7.9 mmol/L (8-16); BLOOD UREA NITROGEN 8 mg/dL (7-26); BUN/CREATININE RATIO 13 (6-25); CALCIUM 8.2 mg/dL (8.4-10.2); CARBON DIOXIDE 28 mmol/L (22-29); CHLORIDE 108 mmol/L (98-107); CREATININE, SERUM 0.61 mg/dL (0.57-1.11); EST GLOMERULAR FILTRATION RATE > 60 ML/MIN (60-); GLUCOSE 102 mg/dL (74-118); MAGNESIUM 1.6 MG/DL (1.3-2.1); POTASSIUM 3.9 mmol/L (3.5-5.1); SODIUM 140 mmol/L (136-145)
--- NOTE | 2019-12-19 07:00 | NUR ---
RECEIVED PATIENT AWAKE RESTING IN BED NO S/S OF DISTRESS. BED LOW, WHEELS LOCKED, SIDE RAILS X2. CALL LIGHT IN REACH WILL CONTINUE TO MONITOR PATIENT.
[2019-12-19] MEDS: MEROPENEM 1GM 100 ML IV SCH ×3 (07:03→22:07)
[2019-12-19] MEDS: SODIUM CHLORIDE 0.9% 1000ML 1,000 ML IV SCH ×3 (07:04→23:59)
[2019-12-19] MEDS: SERTRALINE HCL 50 MG TAB PO SCH (08:56)
[2019-12-19] MEDS: PANTOPRAZOLE SOD 40 MG TABEC PO SCH (08:56)
[2019-12-19] MEDS: ASPIRIN 81 MG CHEW TAB PO SCH (08:56)
--- NOTE | 2019-12-19 10:49 | Progress Note ---
DATE: SUBJECTIVE: The patient is seen and evaluated. Available labs and notes reviewed. Discussed with Dr. Franklin. Please refer to chart for more information. REVIEW OF SYSTEMS: Feels better. Had a regular diet this morning, holding it down. No nausea, vomiting, fever, chills, chest pain, shortness of breath, headache, rash, or dysuria. Abdominal pain feels better. PHYSICAL EXAMINATION: VITAL SIGNS: Temperature 98.4, pulse 62, respirations 16, blood pressure 122/53. GENERAL: Alert and oriented. No acute distress. CV: S1 and S2. CHEST: Equal expansion. Clear to auscultation. No acute distress. ABDOMEN: Soft and nontender. No distention. Percutaneous drain noted. The drainage has stained out and it is more again look like a liquid versus a thick, but the color pretty much is the same. MEDICATIONS: Medication list reviewed and from ID point of view, the patient is on meropenem. LABORATORY STUDIES: White count improved to 5.03, hemoglobin 8, and platelet 336. Sodium 140, potassium 3.9, and creatinine 0.61. Total bilirubin, AST, ALT, and ALP all within normal limits. Low albumin of 1.7. MICROBIOLOGY: Abscess cultures, Klebsiella. IMAGING: No new radiology studies available. ASSESSMENT AND PLAN: 1. Right lower quadrant abdominal abscess. 2. History of appendectomy. 3. Status post percutaneous drain placement with improved consistency of the drainage. 4. Hypertension. 5. Chronic pain. 6. Continue with Merrem. Also, urine culture reviewed. Taper antibiotics soon. Please refer to chart for more information. Discussed with Dr. Franklin. Dictated by Rm Wilkins PA-C (Al) Chris Franklin MD /MODL /[id number]
--- NOTE | 2019-12-19 11:29 | NUR ---
SPOKE TO MALLIKA RYAN NP, HE IS WAITING ON FINAL WOUND CX REPORT.
[2019-12-19] MEDS: HYDROMORPHONE 1MG/1ML INJ IV PRN ×2 (11:49→22:11)
[2019-12-19] MEDS ORDERED: MAGNESIUM SULF 1GRAM/DEXTROSE 100 ML IV ONE (14:15)
--- NOTE | 2019-12-19 22:24 | NUR ---
PATIENT REFUSED BED ALARM. STATES SHE DON'T NEED IT. SHE CAN GET UP BY HERSELF.
[2019-12-19] MEDS: TEMAZEPAM 15 MG CAP PO PRN (23:59)
[2019-12-20] VITALS: BP 137/56
[2019-12-20 04:45] VITALS: BP 148/50
[2019-12-20] MEDS: MEROPENEM 1GM 100 ML IV SCH (05:24)
[2019-12-20] MEDS: SODIUM CHLORIDE 0.9% 1000ML 1,000 ML IV SCH (05:24)
[2019-12-20 06:01] LABS: BASOPHILS % 0.4 % (0.0-1.0); EOSINOPHILS # (AUTO) 0.2 (0.0-0.4); EOSINOPHILS % 4.6 % (0.0-6.0); HEMATOCRIT 28.8 % (34.2-44.1); HEMOGLOBIN 8.8 g/dL (12.0-16.0); LYMPHOCYTES # (AUTO) 1.6 (1.0-3.2); LYMPHOCYTES % 29.6 % (18.0-39.1); MEAN CORPUSCULAR HEMOGLOBIN 25.3 pg (28-32); MEAN CORPUSCULAR HGB CONC 30.6 g/dL (31-35); MEAN CORPUSCULAR VOLUME 82.8 fL (81-99); MONOCYTES # (AUTO) 0.5 (0.2-0.8); MONOCYTES % 8.6 % (4.4-11.3); NEUTROPHILS # (AUTO) 2.9 (2.1-6.9); NEUTROPHILS % 55.3 % (38.7-80.0); PLATELET COUNT 426 x10e3/uL (140-360); RED BLOOD COUNT 3.48 x10e6/uL (3.6-5.1); RED CELL DISTRIBUTION WIDTH 12.8 % (11.7-14.4)
[2019-12-20 06:28] LABS: BLOOD UREA NITROGEN 5 mg/dL (7-26); BUN/CREATININE RATIO 8 (6-25); CALCIUM 8.6 mg/dL (8.4-10.2); CARBON DIOXIDE 29 mmol/L (22-29); CHLORIDE 105 mmol/L (98-107); CREATININE, SERUM 0.59 mg/dL (0.57-1.11); EST GLOMERULAR FILTRATION RATE > 60 ML/MIN (60-); GLUCOSE 89 mg/dL (74-118); MAGNESIUM 1.7 MG/DL (1.3-2.1); PHOSPHORUS 2.3 MG/DL (2.3-4.7); SODIUM 141 mmol/L (136-145)
--- NOTE | 2019-12-20 07:00 | NUR ---
RECEIVED PATIENT AWAKE RESTING IN BED NO S/S OF DISTRESS. BED LOW, WHEELS LOCKED, SIDE RAILS X2. CALL LIGHT IN REACH WILL CONTINUE TO MONITOR PATIENT.
[2019-12-20 08:00] VITALS: BP 136/43
[2019-12-20] MEDS: ASPIRIN 81 MG CHEW TAB PO SCH (08:16)
[2019-12-20] MEDS: PANTOPRAZOLE SOD 40 MG TABEC PO SCH (08:16)
[2019-12-20] MEDS: SERTRALINE HCL 50 MG TAB PO SCH (08:16)
--- NOTE | 2019-12-20 09:03 | NUR ---
Met with Artis Aguayo NP. Patient may poss dc home today, pending his assessment and talk w/ microbiology.
[2019-12-20 09:11] VITALS: BP 136/43
[2019-12-20] MEDS ORDERED: CEFUROXIME500 MG PO (10:43)
[2019-12-20] MEDS ORDERED: NORCO 10-325 T1 EACH PO (10:43)
[2019-12-20] MEDS ORDERED: ACETAMINOPHEN325 M1 PO (10:43)
--- NOTE | 2019-12-20 11:16 | NUR ---
Patient being discharged home today
[2019-12-20 12:00] VITALS: BP 125/48
--- NOTE | 2019-12-20 12:25 | NUR ---
REMOVED PATIENTS IV. CATHETER TIP INTACT AND PRESSURE DRESSING APPLIED. DRAINAGE BAG INSTRUCTIONS PROVIDED TO PATIENT AND DAUGHTER. PATIENT AND DAUGHTER REPEATED DRAINAGE BAG INSTRUCTIONS AND THE NEED TO DOCUMENT DAILY DRAINAGE OUTPUT FOR FOLLOW UP APPOINTMENTS.
--- NOTE | 2019-12-20 12:31 | NUR ---
PATIENT DISCHARGED FROM FACILITY. PATIENT GATHERED ALL PERSONAL BELONGINGS, DISCHARGE INSTRUCTIONS, AND FOLLOW UP INFORMATION. PATIENT LEFT UNIT IN WHEELCHAIR AND WENT HOME VIA PRIVATE AUTO. NO SIGNS OF DISTRESS WHEN LEAVING FACILITY.
--- NOTE | 2019-12-20 21:35 | Discharge Summary ---
CONSULTING PHYSICIANS: 1. Dr. Chris Franklin with Infectious Disease. 2. Dr. Mathieu Greco with Surgery. PCP: Dr. Pascual Joshi. CHIEF COMPLAINT: Right lower quadrant pain. The patient is an 79-year-old female, who admitted with complaints of sharp right lower quadrant abdominal pain for the past 10 days. She had nausea, but denied vomiting. Her maximum temperature was 103 on 12/15. She denied any sick contacts and denied current fever at the time of admission. PAST MEDICAL HISTORY: CAD with PCI, PAT, asthma, PUD, depression, and sciatica. PAST SURGICAL HISTORY: Coronary artery bypass graft, hysterectomy, right wrist surgery, bilateral knee surgery, appendectomy, tonsillectomy, and cholecystectomy. FAMILY HISTORY: Diabetes mellitus in brother, sister, and daughter. SOCIAL HISTORY: Noncontributory. ALLERGIES: TO LEVOFLOXACIN, MEPERIDINE, CLARITHROMYCIN, OXYCODONE, AND CODEINE. ADMITTING DIAGNOSES: 1. Right lower quadrant abscess with sepsis. 2. Coronary artery disease. 3. Depression. 4. Peptic ulcer disease. DISCHARGE DIAGNOSES: 1. Right lower quadrant abscess with sepsis, POA, now status post retroperitoneal drainage catheter placement on 12/17 by Interventional Radiology. 2. Coronary artery disease. 3. Depression. 4. Peptic ulcer disease. 5. Acute hypomagnesemia, improving. 6. Severe protein-calorie malnutrition. 7. Acute urinary tract infection, POA, with Pseudomonas aeruginosa. On admission, temperature 100.4. Maximum temperature during her stay 100.5. On 12/15, WBCs 26.34, hemoglobin 10.9, and platelets 415. Sodium 133, chloride 95, anion gap 16.1, BUN 16, creatinine 1.01, estimated GFR 53, and magnesium 1.2. Creatine kinase 18, then 11, then 12, CK-MB 0.5, then 0.4, then 0.6, troponin I within normal limits x3. Moderate amount of bacteria in urinalysis. Urine culture and sensitivity grew Pseudomonas aeruginosa. Coronavirus by PCR on 12/15 was negative. Blood cultures x2 had no growth after 72 hours. On 12/16, drainage abscess Gram stain, culture and sensitivity grew Klebsiella pneumoniae and pansensitive E. coli. The Pseudomonas Klebsiella and E. coli all sensitive to Cipro. However, the patient states Cipro upsets her stomach and thus Ceftin 500 mg p.o. b.i.d. prescribed after discussing with Dr. Franklin. Today on the day of discharge, temperature 97.9, heart rate 57, respirations 18, and oxygen saturation 98%. WBC 5.23, hemoglobin 8.8, hematocrit 28.8, and platelets 426. Sodium 141, potassium 4.0, chloride 105, CO2 29, anion gap 11, BUN 5, creatinine 0.59, estimated GFR greater than 60, glucose 89, calcium 8.6, phosphorus 2.3, and magnesium 1.7. Magnesium is low as 1.1 on 12/17. Yesterday, total protein 5.2 and albumin 1.7. Percutaneous placement of a 10-Kyrgyz drainage catheter into the right retroperitoneal abscess yielded 20 mL of blood-tinged purulent fluid on 12/[address] William Paredes. The patient still has some right upper quadrant pain, described as 2/10 yesterday, and today only painful with moving around. Denies nausea, vomiting, or diarrhea. She has poor appetite. States the food here is horrible and is looking forward to eating her daughter's food at home. Her daughter is on her way with food at present. Ms. Jung, RN to discuss proper care of the patient's drainage bag. She received Merrem per Infectious Disease during her stay and will go home on Ceftin. She will be on [place] 10 mg p.o. q.6 hours p.r.n. for pain, quantity 40, as written by Dr. Shultz. The patient had 1 g of magnesium sulfate IV yesterday and prior to that had 4 g of magnesium sulfate IV for magnesium level of 1.1. Continue GI soft diet. Activity as tolerated with care to avoid displacement of the drain. Follow up with PCP in 1 to 2 weeks. Follow up with Dr. Franklin in 1 to 2 weeks and follow up with Dr. Greco as directed. Dictated by Artis Aguayo NP James Shultz MD HWP/MODL /[id number]
== END 2019-12-20 12:32 | disposition home or self-care (01) | DRG 871 ==
LOC: ER 10:16 → ERHOLD 15:51 → MED/SURG2 18:10
PROVIDERS: ADMIT Internal Medicine; ATTEND Internal Medicine
PROC: 0W9H30Z Drainage of Retroperitoneum with Drainage Device, Percutaneous Approach (ICD-10-PCS; principal; 2019-12-17)
DX: A41.9 Sepsis, unspecified organism (principal); E43 Unspecified severe protein-calorie malnutrition; K68.19 Other retroperitoneal abscess; N39.0 Urinary tract infection, site not specified; I25.10 Atherosclerotic heart disease of native coronary artery without angina pectoris; E83.42 Hypomagnesemia; Z68.23 Body mass index [BMI] 23.0-23.9, adult; I10 Essential (primary) hypertension; I25.2 Old myocardial infarction; M54.9 Dorsalgia, unspecified; Z96.653 Presence of artificial knee joint, bilateral; Z90.49 Acquired absence of other specified parts of digestive tract; Z95.1 Presence of aortocoronary bypass graft; J45.909 Unspecified asthma, uncomplicated; Z83.3 Family history of diabetes mellitus; I73.9 Peripheral vascular disease, unspecified; F32.9 Major depressive disorder, single episode, unspecified; M19.90 Unspecified osteoarthritis, unspecified site; Z88.1 Allergy status to other antibiotic agents; Z88.5 Allergy status to narcotic agent; Z11.59 Encounter for screening for other viral diseases; B96.5 Pseudomonas (aeruginosa) (mallei) (pseudomallei) as the cause of diseases classified elsewhere; B96.1 Klebsiella pneumoniae [K. pneumoniae] as the cause of diseases classified elsewhere; B96.20 Unspecified Escherichia coli [E. coli] as the cause of diseases classified elsewhere; D64.9 Anemia, unspecified; K27.9 Peptic ulcer, site unspecified, unspecified as acute or chronic, without hemorrhage or perforation
CPT/HCPCS: 36415; 49406; 71045; 74177; 74470; 80048; 80053; 81001; 82550; 82553; 82948; 83735; 84100; 84484; 85025; 85610; 85730; 87040; 87070; 87086; 87186; 87205; 87635; 93005; 99283; C1729; C1769; J1170; J2250; J2405; J3010; J3475; J7030; Q9967

== ENCOUNTER 2019-12-29 13:11 | Inpatient (IN) | payer MEDICARE, OTHER ==
[~2019-12-29] VITALS: Ht 152.4 cm; Wt 49.0 kg
[~2019-12-29 13:11] MED LIST changes: +ACETAMINOPHEN325 M1 PO; +CEFUROXIME500 MG PO; +DICYCLOMINE HCL20 MG PO; +NORCO 10-325 T1 EACH PO; +PROTONIX20 MG PO; +SERTRALINE HCL50 MG PO; +TEMAZEPAM15 MG PO
[2019-12-29] MEDS ORDERED: MORPHINE SULFATE 2 MG/ML SYR 1ML IV PRN (14:00)
[2019-12-29] MEDS ORDERED: SODIUM CHLORIDE 0.9% 1000ML 500 ML IV STA (14:17)
[2019-12-29] MEDS ORDERED: SODIUM CHLORIDE 0.9% 1000ML 1,000 ML IV STA (14:17)
[2019-12-29] MEDS ORDERED: MEROPENEM 1GM 100 ML IV STA (14:17)
--- NOTE | 2019-12-29 14:21 | Emergency Department Note ---
History of Present Illnes History of Present Illness Chief Complaint: Genitourinary History of Present Illness This is a 79 year old female . Historian: Patient Arrival Mode: Car Management Instructor Required: No Onset (how long ago): week(s) Location: lower abd Quality: painful Radiation: Reports non-radiation Severity: moderate Onset quality: gradual Duration (how long): week(s) (1) Timing of current episode: constant Progression: worsening Chronicity: recurrent Relieving factors: none Exacerbating factors: none Associated symptoms: Denies confusion, Denies chest pain, Denies headaches, Denies loss of appetite, Denies malaise, Denies nausea/vomiting, Denies rash Treatments prior to arrival: none Past Medical/Family History Physician Review I have reviewed the patient's past medical and family history. Any updates have been documented here. Past Medical History Recent Fever: No Clinical Suspicion of Infectio: No New/Unexplained Change in Ment: No Past Medical History: Hypertension, [place], Chronic Back Pain Other Medical History: TICK BITE CHRONIC BACK PAIN PANCREATITIS Past Surgical History: Appendectomy, Hysterectomy, CABG, Knee Replacement Other Surgery: RIGHT ARM SURGERY BILATERAL KNEE REPLACEMENT Social History Smoking Cessation: Never Smoker Counseling Performed: No Alcohol Use: Social Any Illegal Drug Use: No TB Exposure/Symptoms: No Physically hurt or threatened: No Family History Family history of heart diseas: No Other Last Tetanus: UNK Any Pre-Existing Lines (PICC,: No Is patient up to date on immun: Yes Review of Systems ROS Narrative Patient is a 79 year old female that presents with lower abd pain that R/T to lower right back. States she was sent for surgery to replace nephrostomy tube. Called Dr Franklin and Dr Shultz ,will admit Review of Systems Constitutional: Reports no symptoms EENTM: Reports no symptoms Cardiovascular: Reports no symptoms Respiratory: Reports no symptoms Gastrointestinal: Reports abdominal pain Genitourinary: Reports no symptoms, Reports other (lower back pain) Musculoskeletal: Reports back pain Integumentary: Reports no symptoms Neurological: Reports no symptoms Psychological: Reports no symptoms Endocrine: Reports no symptoms Hematological/Lymphatic: Reports no symptoms Physical Exam Related Data Allergies: Coded Allergies: codeine (Verified Allergy, Mild, "FEELS LIKE ANTS ARE CRAWLING", 03/27/17) oxycodone (Verified Allergy, Mild, "FEELS LIKE ANTS ARE CRAWLING", 03/27/17) clarithromycin (Verified Allergy, Unknown, 03/27/17) levofloxacin (Verified Allergy, Unknown, 03/27/17) meperidine (Verified Allergy, Unknown, 03/27/17) Uncoded Allergies: TAPE (Allergy, Unknown, 03/27/17) Triage Vital Signs Vital Signs Date Time Temp Pulse Resp B/P (MAP) Pulse Ox O2 Delivery O2 Flow Rate FiO2 12/29/19 14:04 98.5 70 16 120/64 100 Room Air Vital signs reviewed: Yes Physical Exam CONSTITUTIONAL Constitutional: Present well-developed, Present well-nourished HENT HENT: Present normocephalic, Present atraumatic, Present oropharynx clear/moist, Present nose normal HENT L/R: Present left ext ear normal, Present right ext ear normal EYES Eyes: Reports PERRL, Reports conjunctivae normal NECK Neck: Present ROM normal PULMONARY Pulmonary: Present effort normal, Present breath sounds normal CARDIOVASCULAR Cardiovascular: Present regular rhythm, Present heart sounds normal, Present capillary refill normal, Present normal rate GASTROINTESTINAL Abdominal: Present soft, Present bowel sounds normal, Present tender (lower abd) GENITOURINARY Genitourinary: Present exam deferred SKIN Skin: Present warm, Present dry MUSCULOSKELETAL Musculoskeletal: Present ROM normal, Present tenderness (right lower back) NEUROLOGICAL Neurological: Present alert, Present oriented x 3, Present no gross motor or sensory deficits PSYCHOLOGICAL Psychological: Present mood/affect normal, Present judgement normal Results Laboratory Lab results reviewed: Yes Imaging Imaging results reviewed: Yes Diagnostics Tests Diagnostic test(s) reviewed: Yes Assessment & Plan Medical Decision Making MDM blood work, UA, urine CX to R/O infection- Consult to Dr Franklin and IR for nephrostomy replacement - IVF and pain medication Admission orders Reassessment Reassessment time: 14:20 Assessment & Plan Final Impression: (1) Lower back pain (2) Abdominal pain (3) Retroperitoneal abscess Depart Disposition: ADMITTED Last Vital Signs Date Time Temp Pulse Resp B/P (MAP) Pulse Ox O2 Delivery O2 Flow Rate FiO2 12/29/19 14:04 98.5 70 16 120/64 100 Room Air Home Meds Active Scripts Cefuroxime Axetil (CEFUROXIME) 500 Mg Tablet, 500 MG PO BID for 14 Days, #28 TAB 0 Refills Prov:MALLIKA RYAN [employer] LEASING AGENT 6/28/20 Hydrocodone Bit/Acetaminophen (NORCO 10-325 TABLET) 1 Each Tablet, 1 TAB PO Q6H PRN for SEVERE PAIN (7-10), #40 TAB 0 Refills Prov:CONNORMALLIKA REAL ESTATE LEASING AGENT 12/20/19 Acetaminophen (ACETAMINOPHEN) 325 Mg Tablet, 650 MG PO Q6H PRN for P/T For fever > 101.0 F for 14 Days, #30 TAB 0 Refills Prov:MALLIKA RYAN [employer] LEASING AGENT 12/20/19 Reported Medications Dicyclomine Hcl (DICYCLOMINE HCL) 20 Mg Tablet, 20 MG PO Q6H PRN for PRN, TAB 12/18/19 Temazepam (TEMAZEPAM) 15 Mg Capsule, 15 MG PO HS PRN for sleep 12/16/19 Sertraline Hcl (SERTRALINE HCL) 50 Mg Tablet, 25 MG PO DAILY, #30 TAB 12/16/19 Pantoprazole Sodium (PROTONIX) 20 Mg Tablet.dr, 20 MG PO DAILY, #30 TAB 12/16/19 Aspirin (ASPIR 81) 81 Mg Tablet.dr, 81 MG PO DAILY 03/28/17 MARY REEDER Dec 29, 2019 14:21
[2019-12-29] MEDS ORDERED: ONDANSETRON HCL INJ 2MG/ML 2ML 2 MG/ML VIAL IV NR (14:30)
[2019-12-29] MEDS ORDERED: MEROPENEM 500MG 500 MG in SODIUM CHLORIDE 0.9% 50ML 50 ML IV SCH (14:30)
[2019-12-29] MEDS ORDERED: MORPHINE SULFATE 2 MG/ML SYR 1ML IV NR (14:30)
[2019-12-29] MEDS ORDERED: ONDANSETRON HCL INJ 2MG/ML 2ML 2 MG/ML VIAL IV PRN (14:30)
[2019-12-29] MEDS ORDERED: VANCOMYCIN 1GM/NS 250 ML 250 ML IV ONE (14:30)
[2019-12-29 14:35] LABS: BASOPHILS % 0.3 % (0.0-1.0); EOSINOPHILS # (AUTO) 0.2 (0.0-0.4); HEMATOCRIT 35.5 % (34.2-44.1); HEMOGLOBIN 10.7 g/dL (12.0-16.0); LYMPHOCYTES # (AUTO) 2.2 (1.0-3.2); LYMPHOCYTES % 21.3 % (18.0-39.1); MEAN CORPUSCULAR HEMOGLOBIN 25.7 pg (28-32); MEAN CORPUSCULAR HGB CONC 30.1 g/dL (31-35); MEAN CORPUSCULAR VOLUME 85.3 fL (81-99); MONOCYTES # (AUTO) 0.5 (0.2-0.8); MONOCYTES % 4.4 % (4.4-11.3); NEUTROPHILS # (AUTO) 7.4 (2.1-6.9); NEUTROPHILS % 71.6 % (38.7-80.0); PLATELET COUNT 240 x10e3/uL (140-360); RED BLOOD COUNT 4.16 x10e6/uL (3.6-5.1); RED CELL DISTRIBUTION WIDTH 15.3 % (11.7-14.4)
[2019-12-29 14:40] LABS: INR 1.02; PARTIAL THROMBOPLASTIN TIME 32.7 seconds (23.8-35.5)
[2019-12-29 14:48] LABS: ALANINE AMINOTRANSFERASE 7 IU/L (0-55); ALBUMIN 3.3 g/dL (3.5-5.0); ALBUMIN/GLOBULIN RATIO 0.7 (0.8-2.0); ALKALINE PHOSPHATASE 71 IU/L (40-150); ANION GAP 14.8 mmol/L (8-16); BLOOD UREA NITROGEN 14 mg/dL (7-26); BUN/CREATININE RATIO 18 (6-25); CALCIUM 9.9 mg/dL (8.4-10.2); CARBON DIOXIDE 29 mmol/L (22-29); CHLORIDE 101 mmol/L (98-107); CREATININE, SERUM 0.77 mg/dL (0.57-1.11); EST GLOMERULAR FILTRATION RATE > 60 ML/MIN (60-); GLUCOSE 105 mg/dL (74-118); LIPASE 15 U/L (8-78); MAGNESIUM 1.5 MG/DL (1.3-2.1); POTASSIUM 4.8 mmol/L (3.5-5.1); SODIUM 140 mmol/L (136-145)
--- NOTE | 2019-12-29 14:58 | Diagnostic Imaging Report ---
EXAMINATION: CHEST SINGLE (PORTABLE) INDICATION: ^ERMD ORDER ^[id number] ^1430 ^Y COMPARISON: 12/16/2019 FINDINGS: AP view TUBES and LINES: None. LUNGS: Lungs are well inflated. There is no evidence of pneumonia or pulmonary edema. Mild left midlung linear atelectasis/scarring, unchanged. Rounded soft tissue calcification projecting over the left lower lung field. PLEURA: No pleural effusion or pneumothorax. HEART AND MEDIASTINUM: The cardiomediastinal silhouette is unremarkable. Median sternotomy wires and mediastinal surgical clips are again seen. Coronary artery stent. BONES AND SOFT TISSUES: No acute osseous lesion. Soft tissues are unremarkable. UPPER ABDOMEN: No free air under the diaphragm. IMPRESSION: No acute thoracic abnormality. No significant interval change from prior exam. Signed by: Dr. Domenico Wall MD on 12/29/2019 2:54 PM
[2019-12-29 15:47] LABS: BILIRUBIN,URINE NEGATIVE (NEGATIVE); CLARITY,URINE CLEAR (CLEAR); COLOR,URINE YELLOW (YELLOW); KETONES,URINE NEGATIVE (NEGATIVE); LEUKOCYTE ESTERASE ,URINE SMALL (NEGATIVE); NITRITE,URINE NEGATIVE (NEGATIVE); PROTEIN,URINE DIPSTICK NEGATIVE (NEGATIVE); URINE UROBILINOGEN 0.2 mg/dL (0.2 - 1)
[2019-12-29 15:53] LABS: WBC,URINE (MAN) >50 /HPF (0-5)
[2019-12-29 15:54] LABS: BACTERIA,URINE MODERATE /HPF; EPITHELIAL CELLS,URINE FEW /LPF
--- NOTE | 2019-12-29 16:14 | Diagnostic Imaging Report ---
EXAM: CT Abdomen and Pelvis WITHOUT contrast INDICATION: ^[id number] ^1512 ^EVALUATE DRAINAGE CATHETER COMPARISON: CT dated 12/16/2019 TECHNIQUE: Abdomen and pelvis were scanned utilizing a multidetector helical scanner from the lung base to the pubic symphysis without administration of IV contrast. Absence of intravenous contrast decreases sensitivity for detection of focal lesions and vascular pathology. Coronal and sagittal reformations were obtained. Routine protocol was performed. IV CONTRAST: None ORAL CONTRAST: None COMPLICATIONS: None RADIATION DOSE: Total DLP: 192.21 mGy*cm Estimated effective dose: (DLP x 0.015 x size factor) mSv CTDIvol has been reviewed. It is below the limits set by the Radiation Protocol Committee (RPC). FINDINGS: LINES and TUBES: Surgical drain in place with tip terminating in right lower quadrant. LOWER THORAX: Unremarkable HEPATOBILIARY: Unenhanced liver is unremarkable. No biliary ductal dilation. GALLBLADDER: Surgically absent. SPLEEN: No splenomegaly. PANCREAS: No focal masses or ductal dilatation. ADRENALS: No adrenal nodules KIDNEYS/URETERS: No hydronephrosis. Limited for evaluation of renal parenchyma without intravenous contrast. Again seen left renal inferior pole 4.5 cm cyst. No stones. GI TRACT: No abnormal distention, wall thickening, or evidence of bowel obstruction. There are diverticula within the colon without evidence of diverticulitis. Appendix is not visualized. Tethering of the duodenum toward right lower quadrant with a blind ending appearing fistula tract on current exam (series 2, image 39]. PELVIC ORGANS/BLADDER: Unremarkable. LYMPH NODES: No lymphadenopathy. Few prominent right lower quadrant mesenteric lymph nodes, likely reactive. VESSELS: There is moderate to severe atherosclerotic disease in the aorta and major arterial branches. PERITONEUM / RETROPERITONEUM: No free air or fluid. Significant interval decrease or resolution of the previously seen right lower quadrant gas containing abscess, status post drainage catheter placement. Mild soft tissues thickening or residual collection measures 2.2 cm (series 2, image 34). BONES: Generalized demineralization. Degenerative changes of spine. SOFT TISSUES: Unremarkable. IMPRESSION: 1. Significant interval decrease or resolution of the previously seen right lower quadrant gas containing abscess, status post drainage catheter placement. Mild soft tissues thickening in the area or residual collection measures 2.2 cm. Evaluation is limited without intravenous contrast. 2. Tethering of the duodenum toward right lower quadrant with a blind ending appearing fistula tract on current exam. Attention on follow-up examination. Signed by: Dr. Domenico Wall MD on 12/29/2019 4:11 PM
[2019-12-29] MEDS ORDERED: HYDROCODONE/APAP 5MG-325MG TAB PO NR (16:15)
[2019-12-29] MEDS ORDERED: VANCOMYCIN 1GM/NS 250 ML 250 ML IV SCH (17:00)
--- NOTE | 2019-12-29 17:52 | NUR ---
CONSULTATION DICTATED SEEN AND EXAMINED [id number]
--- NOTE | 2019-12-29 22:16 | NUR ---
Patient arrived via wheelchair from ED to Rm 286 as a new admit. Admitting diagnosis is Abscess. Alert and oriented x3. Nephrostomy tube inserted on right upper back and connected to bag draining pus-like fluid. Pt c/o of frequent pain on insertion site. Pt ambulatory in room prn. On IVF (NS at 125ml/hr) and scheduled IV antibiotics. Call jamil within reach. Will monitor pt closely.
[2019-12-29 22:30] VITALS: BP 168/52
[2019-12-29] MEDS: SODIUM CHLORIDE 0.9% 1000ML 1,000 ML IV SCH (22:40)
[2019-12-29] MEDS ORDERED: HYDROMORPHONE 1MG/1ML INJ IV ONE (23:00)
[2019-12-29 23:39] VITALS: BP 166/62
[2019-12-29] MEDS ORDERED: MAGNESIUM SULFATE 2GM/50ML 50 ML IV ONE (23:45)
[2019-12-30 00:40] VITALS: BP 147/53
[2019-12-30 04:00] VITALS: BP 164/54
[2019-12-30] MEDS ORDERED: MEROPENEM 500MG 500 MG in SODIUM CHLORIDE 0.9% 50ML 50 ML IV SCH (04:00)
[2019-12-30] MEDS ORDERED: MEROPENEM 500MG/ NS 50ML 50 ML ONE (04:19)
--- NOTE | 2019-12-30 04:25 | NUR ---
Pt agreed and signed consent form for procedure (Replacement of Nephrostomy tube) today.
[2019-12-30] MEDS ORDERED: HYDROMORPHONE 1MG/1ML INJ IV PRN (05:00)
[2019-12-30 06:08] LABS: BASOPHILS % 0.6 % (0.0-1.0); EOSINOPHILS # (AUTO) 0.4 (0.0-0.4); HEMOGLOBIN 9.5 g/dL (12.0-16.0); LYMPHOCYTES # (AUTO) 2.3 (1.0-3.2); LYMPHOCYTES % 36.3 % (18.0-39.1); MEAN CORPUSCULAR HEMOGLOBIN 26.5 pg (28-32); MEAN CORPUSCULAR HGB CONC 30.6 g/dL (31-35); MEAN CORPUSCULAR VOLUME 86.4 fL (81-99); MONOCYTES # (AUTO) 0.5 (0.2-0.8); MONOCYTES % 7.4 % (4.4-11.3); NEUTROPHILS # (AUTO) 3.1 (2.1-6.9); NEUTROPHILS % 49.4 % (38.7-80.0); PLATELET COUNT 264 x10e3/uL (140-360); RED BLOOD COUNT 3.59 x10e6/uL (3.6-5.1); RED CELL DISTRIBUTION WIDTH 14.9 % (11.7-14.4)
[2019-12-30 06:25] LABS: ALANINE AMINOTRANSFERASE 6 IU/L (0-55); ALBUMIN 2.6 g/dL (3.5-5.0); ALBUMIN/GLOBULIN RATIO 0.7 (0.8-2.0); ALKALINE PHOSPHATASE 60 IU/L (40-150); BLOOD UREA NITROGEN 10 mg/dL (7-26); BUN/CREATININE RATIO 16 (6-25); CALCIUM 8.6 mg/dL (8.4-10.2); CARBON DIOXIDE 28 mmol/L (22-29); CHLORIDE 105 mmol/L (98-107); CREATININE, SERUM 0.63 mg/dL (0.57-1.11); EST GLOMERULAR FILTRATION RATE > 60 ML/MIN (60-); GLUCOSE 94 mg/dL (74-118); MAGNESIUM 2.1 MG/DL (1.3-2.1); SODIUM 138 mmol/L (136-145)
[2019-12-30 06:48] LABS: CHOL/HDL RATIO 5.4 (3.0-3.6)
[2019-12-30 07:02] LABS: THYROID STIMULATING HORMONE 4.352 uIU/mL (0.350-4.940)
[2019-12-30] MEDS ORDERED: HYDRALAZINE HCL 20 MG/ML VIAL IV PRN (07:30)
--- NOTE | 2019-12-30 08:00 | NUR ---
PAGED DR. TREJO REGARDING NEW CONSULT.
[2019-12-30 08:12] VITALS: BP 168/68
[2019-12-30] MEDS: FAMOTIDINE 20 MG/2 ML VIAL IV SCH ×2 (08:12→16:00)
[2019-12-30] MEDS: SODIUM CHLORIDE 0.9% 1000ML 1,000 ML IV SCH ×2 (08:12→14:30)
--- NOTE | 2019-12-30 08:30 | NUR ---
CALL RECEIVED FROM DR. MITCHELL AND INFORMED PT DOESN'T NEED REPLACEMENT OF DRAINAGE TUBE BUT JUST THE REMOVAL OF THE TUBE . THERE IS NO MORE DRAINAGE TO COME OUT PER DR. MITCHELL. INFORMED THE SAME TO MALLIKA RENO AND PRITI FLEMING. PER PRITI FLEMING, DR. TREJO WILL SEE THE PT AND WILL CALL BACK DR. MITCHELL. INFORMED THE SAME TO DR. MITCHELL. PT DOESN'T NEED TO BE ON NPO PER DR. MITCHELL.
[2019-12-30 08:45] VITALS: BP 168/68
[2019-12-30 11:40] VITALS: BP 135/49
--- NOTE | 2019-12-30 12:13 | NUR ---
NEW ORDER FOR EVALUATION OF DRAINAGE TUBE. NO CONSENT NEEDED PER RADIOLOGY.
--- NOTE | 2019-12-30 12:40 | NUR ---
PT OFF UNIT TO RADIOLOGY IN SAFE CONDITION.
[2019-12-30] MEDS ORDERED: IOPAMIDOL 300 MG/ML 15ML VIAL IT ONE (12:51)
--- NOTE | 2019-12-30 13:30 | NUR ---
PT BACK TO UNIT FROM RADIOLOGY. PT DENIES NEEDS AT THIS TIME.
--- NOTE | 2019-12-30 13:35 | NUR ---
DRAINAGE TUBE REMOVED BY RADIOLOGY. SITE IS [facility]. DRESSING IN PLACE. PT IS AAOX4. PT DENIES NEEDS AT THIS TIME.
[2019-12-30] MEDS ORDERED: CEFUROXIME500 MG PO (14:25)
--- NOTE | 2019-12-30 15:52 | NUR ---
The patient is an 79-year-old female with 10-day history of progressive abdominal pain in the right lower quadrant with some subjective fevers. No vomiting, no diarrhea, even though her appetite has decreased. PAST MEDICAL HISTORY: Significant for coronary artery disease and osteoarthritis. PAST SURGICAL HISTORY: Positive for coronary artery bypass grafting, hysterectomy, appendectomy at 10 years of age, and knee replacement. SOCIAL HABITS: She does not smoke or drink. REVIEW OF SYSTEMS: No chest pain, shortness of breath, cough, or dizziness. ALLERGIES: TO CODEINE, LEVAQUIN, DEMEROL, OXYCODONE, AND CLARITHROMYCIN. [id number]
--- NOTE | 2019-12-30 15:55 | NUR ---
FABIO TO D/C PT PER DR. FLORES AND DR. TREJO.
--- NOTE | 2019-12-30 15:59 | Diagnostic Imaging Report ---
PROCEDURE: Drainage catheter check and removal Procedural Personnel Attending physician(s): William Paredes MD Fellow physician(s): None Resident physician(s): None Advanced practice provider(s): None Pre-procedure diagnosis: Retroperitoneal abscess Post-procedure diagnosis: Same Indication: Catheter no longer draining, pain Additional clinical history: None Complications: No immediate complications. IMPRESSION: Drainage catheter injection with contrast under fluoroscopy demonstrates no significant residual abscess and no visible fistula to bowel. The drainage catheter was removed. Plan: Patient will remain on antibiotic therapy. If fever, abdominal pain occurs, patient instructed to call primary doctor for further imaging. If abscess recurs, she knows that a drain may need to be placed again. PROCEDURE SUMMARY: - Drainage catheter check under fluoroscopic guidance - Drainage catheter removal - Additional procedure(s): None PROCEDURE DETAILS: Pre-procedure Consent: Informed consent for the procedure including risks, benefits and alternatives was obtained and time-out was performed prior to the procedure. Preparation: The site was prepared and draped using maximal sterile barrier technique including cutaneous antisepsis. Anesthesia/sedation Level of anesthesia/sedation: No sedation Anesthesia/sedation administered by: Not applicable Total intra-service sedation time (minutes): 0 Drainage catheter check and removal The patient was positioned supine. Initial imaging was performed with contrast injection through the indwelling tube. The drainage catheter was removed, and a sterile bandage was placed. - Initial imaging findings: No significant residual abscess. Contrast leakage around insertion site. No fistula to bowel. Contrast Contrast agent: Isovue 370 Contrast volume (mL): 10 Radiation Dose Fluoroscopy time (minutes): 1.0 Reference air kerma (mGy): 4.8 Additional Details Additional description of procedure: None Equipment details: None Specimens removed: None Estimated blood loss (mL): Less than 10 Standardized report: [email or web address] Attestation Signer name: William Paredes MD I attest that I was present for the entire procedure. I reviewed the stored images and agree with the report as written. Signed by: William Paredes MD on 12/30/2019 3:56 PM
[2019-12-30] MEDS ORDERED: MEROPENEM 500MG/ NS 50ML 50 ML IV SCH (16:00)
[2019-12-30] MEDS ORDERED: ONDANSETRON HCL 4 MG ORAL DISINTEGRATING TAB PO PRN (16:15)
--- NOTE | 2019-12-30 16:15 | NUR ---
PT DISCHARGED HOME SAFELY WITH FAMILY MEMBER. PT ESCORTED VIA WHEEL CHAIR TO THE PRIVATE AUTO AT THE FRONT ENTRANCE. TELE AND IV REMOVED. TIP INTACT. DRESSING APPLIED. RX GIVEN. DISCHARGE INSTRUCTIONS GIVEN AND PT VERBALIZED UNDERSTANDING. PT DENIED FURTHER NEEDS.
[2019-12-30 17:09] VITALS: BP 120/54
--- NOTE | 2019-12-30 17:57 | Consultation ---
DATE OF CONSULTATION: 12/30/2019 CHIEF COMPLAINT: Back pain. HISTORY OF PRESENT ILLNESS: The patient is an 79-year-old female, known to me from recent hospitalization for right retroperitoneal abscess, which was drained percutaneously by Interventional Radiology. The patient has been doing well at home without fever, chills, nausea, or vomiting. She was admitted to the hospital with right upper back pain again without any fever, chills, or vomiting. PAST MEDICAL HISTORY: Positive for coronary artery disease and arthritis. PAST SURGICAL HISTORY: Positive for coronary artery bypass graft and hysterectomy. She also had appendectomy and knee replacement. ALLERGIES: THE PATIENT HAS ALLERGIC REACTION TO LEVAQUIN, DEMEROL, MORPHINE, CODEINE, AND CLARITHROMYCIN. SOCIAL HABITS: She does not smoke or drink. REVIEW OF SYSTEMS: She denies chest pain, shortness of breath, cough, or fever. PHYSICAL EXAMINATION: VITAL SIGNS: Stable. She is afebrile. GENERAL: The patient is awake, alert, and mild discomfort. HEENT: Sclerae are nonicteric. NECK: Supple. LUNGS: Clear. HEART: Regular rate and rhythm. ABDOMEN: Soft and nontender. The percutaneous drain has minimal output of a light yellowish fluid. No blood. LABORATORY DATA: White cell count is 6.1, hemoglobin 9.5, and platelet count of 264. Creatinine of 0.6. CT of the abdomen revealed improvement in the retroperitoneal abscess with a 2.2, residual collection. There is a mentioning of a possible fistulous tract connecting to the duodenum. ASSESSMENT: Retroperitoneal abscess, improved, improving after percutaneous drainage. PLAN: Discussed with radiologist, who perform the drainage. We will plan to do a fistulogram and possible removal of the drain tube if there is no fistula tract. Mathieu Greco MD DNMariaelena/MODL /[id number]
--- NOTE | 2019-12-30 19:58 | Consultation ---
DATE OF CONSULTATION: REASON FOR CONSULTATION: UTI. HISTORY OF PRESENT ILLNESS: This patient is a very pleasant 79-year-old female, who has history of nephrostomy. The patient comes into the office because she was having some fever and worsening drainage. The patient comes into the emergency room, was seen in the emergency room, where the patient had a CAT scan. Currently lying in bed comfortably. PAST MEDICAL HISTORY: As above. PAST SURGICAL HISTORY: As above. ALLERGIES: NKA. SOCIAL HISTORY: There is no smoking, drug abuse, or alcohol abuse. PHYSICAL EXAMINATION: GENERAL: Currently alert, oriented, does not seem in acute distress. VITAL SIGNS: Stable, currently afebrile. HEENT: She is not icteric. NECK: Supple. CHEST: Clear. ABDOMEN: Soft. IMPRESSION: Abdominal pain and retroperitoneal drainage. PLAN: The patient will be discharged home with Ceftin 500 mg p.o. b.i.d. for 2 weeks. Discussed with medical team. Discussed with the patient at length. Time spent 45 minutes. MD AMMON Pace/JENNIFER /[id number]
--- NOTE | 2019-12-30 22:32 | Discharge Summary ---
CONSULTING PHYSICIANS: 1. Dr. Mathieu Greco. 2. Dr. Chris Franklin. 3. Interventional radiologist, Dr. Paredes. CHIEF COMPLAINT: Abdominal pain, recent abscess. HISTORY OF PRESENT ILLNESS: The patient is an 79-year-old female, who was discharged from here on 12/20/2019, after a retroperitoneal catheter placement on 12/17/2019, by Interventional Radiology for right lower quadrant abscess with sepsis. She presented to the emergency department with lower abdominal pain radiating to the lower right back, which was "horrible," level 10/10. PAST MEDICAL HISTORY: Hypertension, myocardial infarction, coronary artery disease, paroxysmal atrial tachycardia, asthma, pancreatitis, pelvic ulcer disease, sciatica/chronic low back pain, depression, tick bite, and UTI with Pseudomonas. PAST SURGICAL HISTORY: PCI, coronary artery bypass graft, appendectomy, hysterectomy, tonsillectomy, cholecystectomy, right arm surgery, and bilateral knee surgery. FAMILY HISTORY: Diabetes mellitus in a brother, sister, and daughter. SOCIAL HISTORY: Denies any current use of tobacco, alcohol, or illicit drugs. ALLERGIES: MULTIPLE, INCLUDE AT MINIMUM, LEVOFLOXACIN, MEPERIDINE, CLARITHROMYCIN, OXYCODONE, CODEINE, MORPHINE, AND TAPE. ADMITTING DIAGNOSES: 1. Right lower quadrant abscess (improved) with possible fistula, status post retroperitoneal catheter placement on 12/16, by IR. 2. Coronary artery disease, status post coronary artery bypass grafting. 3. Depression. 4. Peptic ulcer disease. 5. Acute hypomagnesemia, improving. 6. Possible urinary tract infection. DISCHARGE DIAGNOSES: 1. Right lower quadrant abscess, improved, status post retroperitoneal catheter removal by Dr. Paredes on 12/30/2019, in Interventional Radiology. 2. Coronary artery disease, history of coronary artery bypass grafting. 3. Depression. 4. Peptic ulcer disease. 5. Status post hypomagnesemia. REVIEW OF SYSTEMS: The patient states she had severe right low back pain on admission, however, indicates now she has no pain. Her last bowel movement was 12/28 x2 without diarrhea. She denies fever, chills, any sick contacts, although states she was in the emergency room for about 12 hours with COVID positive patients there. Currently, denies any sore throat, trouble swallowing, shortness of breath, cough, phlegm, chest pain, palpitations, nausea, or vomiting. PHYSICAL EXAMINATION: VITAL SIGNS: Today, temperature 97.8, T-max 98.5, heart rate 55, blood pressure 164/54, respirations 17, and oxygen saturation 96%. GENERAL: Supine in bed. LUNGS: Clear to auscultation. Respiratory pattern even unlabored. Oxygen saturation 96% on room air. HEENT: EOMI. NECK: Supple. CARDIOVASCULAR: Regular rate and rhythm. No murmur. Normal saline infusing at 125 mL an hour. ABDOMEN: Bowel sounds positive. Soft and nontender. Right upper back with dressing covering previous abscess drain site with minimal serosanguineous drainage on the dressing. EXTREMITIES: Without pitting edema. No clubbing, cyanosis, or marked swelling. No signs or symptoms of DVT. NEUROLOGICAL: GCS 15. Nonfocal. Alert and oriented x4. LABORATORY DATA: On admission, WBCs 10.28, hemoglobin 10.7, hematocrit 35.5, and platelets 270. PT 14, INR 1.02, and PTT 32.7. Sodium 140, potassium 4.8, chloride 101, CO2 29, anion gap 14.8, BUN 14, creatinine 0.77, estimated GFR greater than 60, and glucose 105. Hemoglobin A1c 5.7%. Calcium 9.9 and magnesium 1.5. Total bilirubin 0.3, AST 17, ALT 7, and alkaline phosphatase 71. Total protein 7.8 and albumin 3.3. Lipase 15. Urinalysis with rbc's 6 to 10, wbc's greater than 50, urine bacteria moderate. Coronavirus remains pending. Preliminary urine culture shows no growth after [address] of the abdomen and pelvis showed significant interval decrease resolution of the previously seen right lower quadrant gas containing abscess, status post drainage catheter placement. Mild soft tissue thickening in the area or residual collection measures 2.2 cm. Tethering of the duodenum toward right lower quadrant with a blind-ending appearing fistula tract on current exam, 12/28. Chest x-ray showed no acute thoracic abnormality. No significant interval change from prior exam. Today on the day of discharge 12/29, WBCs 6.19, hemoglobin 9.5, hematocrit 31, and platelets 264. Sodium 138, potassium 4, chloride 105, CO2 28, anion gap 9, BUN 10, creatinine 0.63, estimated GFR greater than 60, glucose 94, calcium 8.6, and magnesium 2.1. Total bilirubin 0.2, AST 13, ALT 6, alkaline phosphatase 60, and total bilirubin 6.3. Albumin 2.6. Triglycerides 203, cholesterol 150, LDL 81, and HDL 28. TSH 4.352. The patient received 2 g of magnesium sulfate IV once last night for mild hypomagnesemia of 1.5. She received vancomycin 1 g IV daily and Merrem 500 mg IV q.12 hours during her stay. She has been on normal saline at 125 mL an hour for hydration, as she has been n.p.o. In order to determine underlying cause of abdominal pain, Infectious Disease, Interventional Radiology, and Surgery consulted and collaborated together. Her abscess drain was removed today by Dr. Paredes with Interventional Radiology. I spoke to Dr. Paredes directly regarding the fistulogram and he stated that there was no opacification of the duodenum. No obvious fistula noted. The patient should continue oral antibiotics at home and be vigilant, and monitoring for signs and symptoms of infection. We will send the patient home on cardiac diet. Activity level as tolerated. Her telemetry showing sinus bradycardia with a heart rate of 55 today. The patient to follow up with Dr. Joshi, her PCP in 1 to 2 weeks, follow up with Dr. Franklin and Dr. Greco as directed. Probably follow up with Dr. Franklin even 2 weeks. The patient will be discharged on Ceftin 500 mg p.o. b.i.d. for 2 weeks. Dictated by Artis Aguayo NP MD RASHEL AlvarezP/YOLANDAL /[id number]
[2019-12-30] MEDS ORDERED: VANCOMYCIN 1GM/NS 250 ML 250 ML IV SCH (23:00)
--- NOTE | 2019-12-31 10:55 | Consultation ---
DATE OF CONSULTATION: HISTORY OF PRESENT ILLNESS: Ms. Cho is seen and examined. She is an 79-year-old very pleasant well known to me with history of coronary artery disease, history of bypass. She was recently here where she had intraabdominal abscess, underwent drainage, drain was placed. She is coming because she has abdominal pain. Repeat CAT scan was done. Discussed with Interventional Radiology. The patient had a CAT scan. The drain was removed and she is currently feeling better. REVIEW OF SYSTEMS: HEENT: Negative. PULMONARY: Negative. CARDIAC: Negative. PHYSICAL EXAMINATION: GENERAL: She is currently alert, oriented, does not seem to be in acute distress. VITAL SIGNS: Stable, afebrile. HEENT: She is not icteric. NECK: Supple. CHEST: Clear. ABDOMEN: Soft. IMPRESSION: Intraabdominal abscess status post drain removed. The plan is to discharge home with Ceftin 500 mg p.o. b.i.d. See me back in a month. MD AMMON Pace/JENNIFER /[id number]
== END 2019-12-30 16:15 | disposition home or self-care (01) | DRG 372 ==
LOC: ER 15:41 → ERHOLD 16:30 → MED/SURG3 22:19
PROVIDERS: ADMIT Internal Medicine; ATTEND Internal Medicine
PROC: 0W9H3ZZ Drainage of Retroperitoneum, Percutaneous Approach (ICD-10-PCS; principal; 2019-12-30)
DX: K68.19 Other retroperitoneal abscess (principal); N39.0 Urinary tract infection, site not specified; N99.528 Other complication of incontinent external stoma of urinary tract; I10 Essential (primary) hypertension; I25.2 Old myocardial infarction; M54.9 Dorsalgia, unspecified; Z96.653 Presence of artificial knee joint, bilateral; Z95.1 Presence of aortocoronary bypass graft; Z88.3 Allergy status to other anti-infective agents; Z88.5 Allergy status to narcotic agent; I25.10 Atherosclerotic heart disease of native coronary artery without angina pectoris; E83.42 Hypomagnesemia; F32.9 Major depressive disorder, single episode, unspecified; Z11.59 Encounter for screening for other viral diseases; B96.5 Pseudomonas (aeruginosa) (mallei) (pseudomallei) as the cause of diseases classified elsewhere
CPT/HCPCS: 36415; 71045; 74176; 74470; 76080; 80053; 80061; 81001; 83036; 83690; 83735; 84443; 85025; 85610; 85730; 87086; 87186; 99284; J0360; J1170; J2185; J2405; J3370; J3475; J7030; Q9967; U0002